=== PATIENT | female | born 1990 | race Hispanic/Latino ===

== ENCOUNTER → 2023-08-14 12:44 | Outpatient (CLI) | payer OTHER, SELFPAY ==
--- NOTE | ~2023-08-14 | US_ITS ---
EXAMINATION: US OB <=14 wk fetus w TV DATE: 08/14/2023 13:10 INDICATION: Amenorrhea TECHNIQUE: Real-time transabdominal and transvaginal obstetric ultrasound. FINDINGS: No prior studies for comparison. The uterus measures 10.4 x 6.1 x 5.9 cm. No intrauterine gestational sac, pole or yolk sac iden tified. Endometrium measures 4 mm. Right ovary contains 3.1 cm cyst. Left ovary unremarkable measurin g 2.5 x 2 x 1.7 cm. Small amount of free fluid in the pelvis. IMPRESSION: 1. No evidence for intrauterine . Differential diagnosis includes very early intrauterine pr egnancy, failed and ectopic . Recommend follow-up with serial quantitative beta-hC G levels and ultrasound as clinically warranted. 2: Right ovarian cyst measuring 3.1 cm. Reviewed, dictated and finalized at location B. [employer] IMPRESSION: 1. No evidence for intrauterine . Differential diagnosis includes very early intrauterine , failed and ectopic . Recommen d follow-up with serial quantitative beta-hCG levels and ultrasound as clinical ly warranted. 2: Right ovarian cyst measuring 3.1 cm.
== END ==
PROVIDERS: PCP Student in an Organized Health Care Education/Training Program; Visit Provider Student in an Organized Health Care Education/Training Program
DX: N91.2 Amenorrhea, unspecified (principal); N83.201 Unspecified ovarian cyst, right side
CPT/HCPCS: 76801; 76817

== ENCOUNTER 2024-02-20 09:15 | Outpatient (RCR) | payer OTHER, SELFPAY ==
[2024-02-06 09:40] VITALS: BMI 39.4
[2024-02-06 09:42] VITALS: BMI 39.4
== END 2024-04-27 11:16 | disposition home or self-care (01) ==
LOC: ANHDMC 09:15
PROVIDERS: PCP Student in an Organized Health Care Education/Training Program; Visit Provider Student in an Organized Health Care Education/Training Program
DX: O24.419 Gestational diabetes mellitus in pregnancy, unspecified control (principal); Z71.3 Dietary counseling and surveillance
CPT/HCPCS: 97802; G0108

== ENCOUNTER 2024-04-04 21:01 | Inpatient (IN) | payer OTHER, SELFPAY ==
[2024-04-04 21:46] VITALS: BP 119/82; PULSE 65
[2024-04-04 22:00] VITALS: TEMP 36.5
[2024-04-04 22:04] VITALS: BP 99/38
[2024-04-04 22:17] VITALS: BP 105/61; PULSE 71
[2024-04-04 22:31] VITALS: BP 106/61; PULSE 70
[2024-04-04 23:16] VITALS: BP 112/78; PULSE 69
[2024-04-04 23:52] LABS: Basophils Percent Auto 0.2 % (0.2-1.2); Eosinophils Absolute Auto 0.1 K/mm3 (0-0.3); Eosinophils Percent Auto 0.7 % (0-4.4); Hematocrit 37.3 % (37.0-47.0); Hemoglobin 12.5 g/dL (12.0-15.0); Immature Granulocyte Absolute 0.03 K/mm3 (0.00-0.031); Immature Granulocyte Percent A 0.3 % (0-0.5); Lymphocytes Absolute Auto 2.27 K/mm3 (0.9-3.2); Lymphocytes Percent Auto 22.7 % (18.3-44.2); Mean Corpuscular HGB Conc 33.5 g/dl (32-36); Mean Corpuscular Hemoglobin 28.4 pg (26-34); Mean Corpuscular Volume 84.8 fl (80-100); Mean Platelet Volume 11.1 fl (7.4-10.4); Monocytes Absolute Auto 0.6 K/mm3 (0.1-0.6); Monocytes Percent Auto 6.3 % (2.6-8.5); Neutrophils Percent Auto 69.8 % (45.5-73.1); Platelet Count Result 142 k/mm3 (150-375); Red Cell Distribution Width 18.6 % (11.5-14.5)
--- NOTE | 2024-04-04 23:56 | LDADM ---
This patient, Nilam Dang, was admitted to Labor/Delivery/Recovery 107 on 04/04/24 at 21:01. Plans for labor, pain management and were discussed with patient. Patient/family oriented to hospital policies and general routines including ID bracelet, bed and alarms, visiting hours, pain management, procedures, bathroom and other care routines, personal items, smoking policy, room service/diet and guest tray routines, security routines, and visiting hours. Patient/Family are encouraged to report perceived risks to care and to ask questions if they do not understand what they are told or what they should do. See OBIX for further documentation.
[2024-04-05] VITALS (181 sets, daily range): BP systolic 85–136; BP diastolic 40–91; PULSE 37–108; RESP 10–17; TEMP 36.5–37.5; O2SAT 96–100; BMI 39.2
[2024-04-05] MEDS: OXYTOCIN 30 UNITS/NS 500 ML 30 UNITS/500 ML BAG IV CONT
[2024-04-05 00:02] LABS: Glucose 96 mg/dL (65-110)
[2024-04-05 00:18] LABS: Rapid Plasma Reagin Non-Reactive (NonReactive)
[2024-04-05 00:42] LABS: HIV 1/2 Ab P24 Ag Result Negative (Negative)
[2024-04-05 04:27] LABS: Glucose Point of Care 87 mg/dl (65-105)
[2024-04-05] MEDS: LACTATED RINGERS 1,000 ML 125 ML IV CONT ×3 (06:31→09:19)
--- NOTE | 2024-04-05 06:55 | WPDANESEPP ---
Anes - Eval Pre Procedure Procedure: Operation Date: 04/09/24 12:00 Proposed Procedures p Repeat Section - John Franklin MD Date/Time: 04/05/24 06:55 Surgeon: Rigoberto Preop Diagnosis: Labor Pain Pre Op Diagnosis: SROM Patient Data Age: 33 Gender: F Height: 1.52 m Weight: 91 kg Last Vital Signs Temp 36.6 C 04/05/24 02:00 Pulse 91 04/05/24 06:55 BP 105/72 04/05/24 06:55 Pulse Ox 100 04/05/24 06:55 Allergies Allergy/AdvReac Type Severity Reaction Status Date / Time No Known Allergies Allergy Verified 04/02/24 10:39 Home Medications Medication Instructions Recorded Confirmed Type vits no.126-ferrous fum tablet PO 08/14/23 03/26/24 History 28 mg iron-folic acid 800 mcg tablet (Classic ) ferrous sulfate 325 mg (65 mg 325 mg PO DAILY 02/06/24 03/26/24 History iron) tablet omeprazole 40 mg capsule,delayed 40 mg PO DAILY #60 caps 03/18/24 03/26/24 Rx release Laboratory Tests 04/04/24 04/05/24 23:44 04:24 WBC 10.0 K/mm3 (4.5-10.0) RBC 4.40 M/mm3 (4.2-5.4) Hgb 12.5 g/dL (12.0-15.0) Hct 37.3 % (37.0-47.0) MCV 84.8 fl (80-100) MCH 28.4 pg (26-34) MCHC 33.5 g/dl (32-36) RDW 18.6 H % (11.5-14.5) Plt Count 142 L k/mm3 (150-375) MPV 11.1 H fl (7.4-10.4) Immature Gran % (Auto) 0.3 % (0-0.5) Neut % (Auto) 69.8 % (45.5-73.1) Lymph % (Auto) 22.7 % (18.3-44.2) [place] % (Auto) 6.3 % (2.6-8.5) Eos % (Auto) 0.7 % (0-4.4) Baso % (Auto) 0.2 % (0.2-1.2) Lymph # (Auto) 2.27 K/mm3 (0.9-3.2) [place] # (Auto) 0.6 K/mm3 (0.1-0.6) Eos # (Auto) 0.1 K/mm3 (0-0.3) Baso # (Auto) 0.0 K/mm3 (0.0-0.1) Abs Immat Gran (auto) 0.03 K/mm3 (0.00-0.031) Absolute Neuts (auto) 7.0 H K/mm3 (1.3-6.7) Absolute Nucleated RBC 0.000 K/mm3 (0.0-0.012) Nucleated RBC % 0.0 % (0.0-0.2) Glucose 96 mg/dL (65-110) POC Capillary Glucose 87 mg/dl (65-105) RPR Non-reactive (NonReactive) HIV 1&2 Ab/P24 Ag 4thGn Negative (Negative) Blood Type A Positive Antibody Screen Negative : gestational age (JESUS 04/16/24) Patient hx anesthesia problems: none Family hx anesthesia problems: none Results Review: All pre-operative results and documents have been reviewed as part of the pre-operative evaluation. [facility] Past Medical History Medical History Suppression of menses Surgical History Surgical History History of delivery Family History Family History Grandparent Diabetes mellitus Hypertension Mother Breast cancer in situ Social History Social History Smoking status: Never smoker Second hand tobacco smoke exposure: No Alcohol intake: current Alcohol use details: occasional Substance use: never Do You Feel Safe in your Home?: Yes Lack of Transportation: No Lack of Food: Never True Current Housing: I Have Housing Concerned About Future Housing: No Difficulty Paying Gas/Electric Bills: No Difficulty Paying for Meds: No Currently Unemployed: No Education: Master's Degree or Higher Difficulty w/ Childcare or Family Care: No Living arrangements: with family Occupation/Education: occupation Gender identity (if verbalized by the patient): Female Sexual Orientation (if Verbalized by the Patient): Straight or Heterosexual Spiritual care concerns: No Exam Day of Procedure 04/05/24 06:55 Patient weight: normal Heart: regular rate and rhythm Lungs: normal air movement Airway: Mallampati scale class II Neurological: alert and jeffery
--- NOTE | 2024-04-05 08:19 | PM.IMHP ---
H&P: HPI History of Present Illness Date/Time: 04/05/24 08:19 Chief Complaint: leakage of fluid intrauterine at term prior gestational diabetes Narrative: 33 yo at 38w2d who presents with spontaneous rupture of membranes. is complicated by diet controlled GDM, prior , and anemia. Review of Systems Cardiovascular: Cardiovascular: Denies chest pain, Denies leg edema, Denies palpitations, Denies dyspnea and Denies dyspnea on exertion Respiratory: Respiratory: Denies cough, Denies dyspnea and Denies dyspnea on exertion Gastrointestinal: Gastrointestinal: Denies abdominal pain, Denies constipation, Denies diarrhea, Denies nausea and Denies vomiting Genitourinary: Genitourinary: Denies hematuria, Denies urinary frequency, Denies dysuria, Denies pelvic pain, Denies urinary incontinence and Denies vaginal discharge Neurologic: Reports system reviewed and no additional complaints, except as documented Psychiatric: Psychiatric: Reports no additional psychiatric complaints Endocrine: Endocrine: Denies palpitations PMFSH Past Medical History Medical History Suppression of menses Surgical History Surgical History History of delivery Family History Family History Grandparent Diabetes mellitus Hypertension Mother Breast cancer in situ Social History Social History Smoking status: Never smoker Second hand tobacco smoke exposure: No Alcohol intake: current Alcohol use details: occasional Substance use: never Do You Feel Safe in your Home?: Yes Lack of Transportation: No Lack of Food: Never True Current Housing: I Have Housing Concerned About Future Housing: No Difficulty Paying Gas/Electric Bills: No Difficulty Paying for Meds: No Currently Unemployed: No Education: Master's Degree or Higher Difficulty w/ Childcare or Family Care: No Living arrangements: with family Occupation/Education: occupation Gender identity (if verbalized by the patient): Female Sexual Orientation (if Verbalized by the Patient): Straight or Heterosexual Spiritual care concerns: No Meds Home Medications and Allergies Home Medications Medication Instructions Recorded Confirmed Type vits no.126-ferrous fum tablet PO 08/14/23 03/26/24 History 28 mg iron-folic acid 800 mcg tablet (Classic ) ferrous sulfate 325 mg (65 mg 325 mg PO DAILY 02/06/24 03/26/24 History iron) tablet omeprazole 40 mg capsule,delayed 40 mg PO DAILY #60 caps 03/18/24 03/26/24 Rx release Allergies Allergy/AdvReac Type Severity Reaction Status Date / Time No Known Allergies Allergy Verified 04/02/24 10:39 Vital Signs Vital Signs - 24 hr 04/04/24 21:46 04/04/24 22:04 04/04/24 22:17 Temperature Pulse Rate 65 71 Blood Pressure 119/82 99/38 L 105/61 Pulse Oximetry 04/04/24 22:31 04/04/24 23:16 04/05/24 00:31 Temperature Pulse Rate 70 69 Blood Pressure 106/61 112/78 106/62 Pulse Oximetry 04/05/24 01:01 04/05/24 01:31 04/05/24 02:01 Temperature Pulse Rate 70 40 L 41 L Blood Pressure 95/48 L 111/55 L 114/55 L Pulse Oximetry 04/05/24 02:31 04/05/24 03:01 04/05/24 03:31 Temperature Pulse Rate 67 40 L 40 L Blood Pressure 114/57 L 102/59 L 119/57 L Pulse Oximetry 04/04/24 22:00 04/05/24 00:00 04/05/24 02:00 Temperature 97.7 F 97.7 F 97.8 F Pulse Rate Blood Pressure Pulse Oximetry 04/05/24 04:01 04/05/24 04:31 04/05/24 05:02 Temperature Pulse Rate 42 L 72 41 L Blood Pressure 124/72 128/87 99/83 L Pulse Oximetry 04/05/24 06:01 04/05/24 06:31 04/05/24 06:35 Temperature Pulse Rate 75 Blood Pressure 110/91 H 110/64 Pul
[2024-04-05 08:26] LABS: Glucose Point of Care 95 mg/dl (65-105)
--- NOTE | 2024-04-05 08:26 | PM.OBPNLAB ---
Pain Control Date/time seen: 04/05/24 08:26 Pain control: epidural Pelvic Exam Dilation (cm): 3 Effacement (%): 80 station: 0 Amniotic membrane status: Ruptured Contractions Monitor mode: External Contraction pattern: Regular Status status: Category l Assessment and Plan Plan: continuous present management Comments: IUPC placed. Discussed plan of care. discussed if indicated
[2024-04-05 11:59] LABS: Glucose Point of Care 80 mg/dl (65-105)
--- NOTE | 2024-04-05 12:56 | PM.OBPNLAB ---
Pain Control Date/time seen: 04/05/24 12:56 Pain control: tolerating well and epidural Comments: 33 yo who presented at 38w2d with SROM. Pt desired TOLAC. Pt has been on pitocin for over 12 hours without cervical change. Patient's last was due to failure to progress. Pelvic Exam Dilation (cm): 4 Effacement (%): 80 station: 0 Amniotic membrane status: Ruptured Contractions Monitor mode: Internal Contraction pattern: Regular Status status: Category l Assessment and Plan Plan: Comments: Cervix remained unchanged despite 12 hours of Pitocin. Patient's last labor was a due to failure to progress. Given last EFW in the 90th percentile and no cervical change, recommend repeat . Patient and her partner are agreeable to this plan. Risks, benefits of discussed at length. Will proceed with repeat
[2024-04-05] MEDS: ACETAMINOPHEN 500 MG TABLET 1000 MG PO (13:02)
[2024-04-05] MEDS: AZITHROMYCIN 500 MG/NS 250 ML 500 MG/250 ML BAG 250 MG IVPB (13:14)
[2024-04-05] MEDS: FAMOTIDINE 20 MG/2 ML VIAL IV PUSH (13:26)
[2024-04-05] MEDS: ONDANSETRON INJ 4 MG/2 ML VIAL IV PUSH ×2 (13:26→20:21)
[2024-04-05] MEDS: ceFAZolin 2 GM/D5W 50 ML 2 GM/50 ML BAG IVPB (14:00)
--- NOTE | 2024-04-05 15:09 | W.PM.OBCSD ---
OB - Delivery Note Procedure Delivery date: 04/05/24 Pre-op diagnosis: Arrest of Decent, Arrest of Dilation, Gestational Diabetes and Previous Delivery Post-op Diagnosis: Same Induction method: None Delivery augmentation: Pitocin Delivery monitor: External FHT and Internal Uterine Prior to decision for section, ACOG/SM labor guidelines were considered and discussed with the patient and staff. Decision made to proceed with the section.: Yes Procedure Performed: Repeat Secondary branch: low cervical, transverse Surgeon: John Franklin MD Anesthesia type: Epidural Description of Procedure/Findings: The patient was taken to the operating room. A combined spinal epidural anesthesic was administered and found to be adequate at a t-10 level. The patient was placed in a supine position with a slight left lateral tilt. A rosas catheter was placed with return of clear urine. A Bovie grounding pad was placed. Surgical prep was performed and surgical drapes were placed. A surgical time out was performed. A Pfannenstiel skin incision was then made with the scalpel and carried through to the underlying layer of fascia. The fascia was then incised in the midline and the incision was extended laterally with the Austin scissors. The superior aspect of the fascia was then grasped with the Sukumar clamps, elevated, and the underlying rectus muscles dissected off bluntly and sharply. Attention was then turned to the inferior aspect of this incision which, in a similar fashion, was grasped, tented up with the Sukumar clamps, and the rectus muscles dissected off both bluntly and sharply. The rectus muscles were then in the midline. The peritoneum was identified and entered bluntly. The peritoneal incision was then extended superiorly and inferiorly with good visualization of the bladder. The vesico-uterine serosa was identified and dissected to create a bladder flap. A ring retractor was placed for better visualization. The uterus was inspected for rotation. A low-transverse uterine incision was made sharply with the scalpel and entry was made into the uterine cavity. An amniotomy was made and copious amounts of clear fluid were noted on return. The uterine incision was extended laterally bluntly. The bladder blade was removed and the fetus was delivered atraumatically. The nose and mouth were suctioned with a bulb syringe. The umbilical cord was clamped twice and cut. The infant was handed off to the waiting staff. At the time of the delivery, the had good color, tone and grimace. The infant cried with minimal stimulation. A second segment of umbilical cord was clamped and cut for cord blood gasses. Cord blood was collected for determination of the blood type and for direct Akbar. The placenta was delivered spontaneously without difficulty. The placenta appeared grossly normal and complete. The uterus was exteriorized and cleared of all clots and debris. A hysterotomy extension was noted at the right apex extending toward the cervix. The apex of the extension was identified. The extension was then re-approximated with 0-monocryl in a running fashion. Once normal anatomy was re-established, the uterine incision was repaired using 0-monocryl suture in a running fashion. A second layer of 0 Monocryl suture was used in an imbricating fashion to obtain excellent hemostasis and uterine strength. The uterine closure was inspected for hemostasis. The posterior aspect of the uterus and the broad ligaments were inspected and the posterior cul-de-sac cleared of fluid and blood clots. The uterine closure was again inspected and found to be hemostatic. Hemaderm powder was used to ensure excellent hemostasis. The uterus was returned to the abdominal cavity. The ring retractor was removed from the abdomen. The pericolic gutters were inspected and were cleared of all blood clots and debris. The uterine closure was then re inspec
--- NOTE | 2024-04-05 15:20 | PC.NURSE ---
Dr. Bauer and Rylie Bowles LINESPERSON and Dr. Franklin at the bedside. Reviewing maternal heart rate and rhythm. Dr. Franklin and Dr. Bauer okay with just monitoring the pt at this time. The pt remain asymptomatic at this time. Order received for H&H and BMP to be orders in [address] Franklin with those labs results.
[2024-04-05] MEDS: OXYTOCIN 30 UNITS/NS 500 ML 30 UNITS/500 ML BAG 125 UNITS IV CONT (16:06)
[2024-04-05] MEDS: LACTATED RINGERS 250 ML 999 ML IVPB (16:07)
[2024-04-05 16:23] LABS: Hematocrit 33.5 % (37.0-47.0); Hemoglobin 11.1 g/dL (12.0-15.0)
[2024-04-05 16:37] LABS: Anion Gap 9 mmol/L (4-12); Blood Urea Nitrogen 7 mg/dL (7-17); Calcium 8.2 mg/dL (8.4-10.2); Carbon Dioxide 21 mmol/L (22-30); Chloride 104 mmol/L (98-107); Estimated CRCL calculation 160 ml/min; Estimated Glomerular Filt Rate > 60; Glucose 82 mg/dL (65-110); Potassium 3.9 mmol/L (3.4-5.0); Sodium 134 mmol/L (137-145)
--- NOTE | 2024-04-05 16:56 | PC.NURSE ---
Dr. Franklin updated on pt VS, lab results and urine clearing up. No further orders at this time.
--- NOTE | 2024-04-05 18:52 | OBPPTRN ---
0215 Patient transferred to post room #285 via stretcher. Support person present. Oriented to unit, room, information board, rooming in, admission packet and security measures. Patient verbalizes understanding.
[2024-04-05] MEDS: SIMETHICONE 80 MG TAB.CHEW PO (20:21)
[2024-04-05] MEDS: ACETAMINOPHEN 325 MG TABLET 650 MG PO (20:21)
[2024-04-05] MEDS: KETOROLAC 15 MG/ML VIAL (*BKC) IV PUSH (20:22)
[2024-04-05] MEDS: KCL 20 MEQ/D5/0.45% SOD CHL 1,000 ML 125 ML IV CONT (20:23)
[2024-04-05] MEDS: PROMETHAZINE HCL 25 MG/ML AMPUL 12.5 MG IV PUSH (22:59)
[2024-04-06 00:26] VITALS: BP 106/71; PULSE 66; RESP 14; TEMP 36.8; O2SAT 97
[2024-04-06] MEDS: ACETAMINOPHEN 325 MG TABLET 650 MG PO ×4 (05:10→22:38)
[2024-04-06] MEDS: KETOROLAC 15 MG/ML VIAL (*BKC) IV PUSH ×3 (05:10→16:35)
[2024-04-06] MEDS: ONDANSETRON INJ 4 MG/2 ML VIAL IV PUSH (05:10)
[2024-04-06 06:07] LABS: Basophils Percent Auto 0.3 % (0.2-1.2); Eosinophils Absolute Auto 0.1 K/mm3 (0-0.3); Eosinophils Percent Auto 0.4 % (0-4.4); Hematocrit 30.4 % (37.0-47.0); Immature Granulocyte Absolute 0.05 K/mm3 (0.00-0.031); Immature Granulocyte Percent A 0.4 % (0-0.5); Lymphocytes Absolute Auto 1.68 K/mm3 (0.9-3.2); Lymphocytes Percent Auto 14.6 % (18.3-44.2); Mean Corpuscular HGB Conc 32.9 g/dl (32-36); Mean Corpuscular Hemoglobin 29.2 pg (26-34); Mean Corpuscular Volume 88.6 fl (80-100); Mean Platelet Volume 10.9 fl (7.4-10.4); Monocytes Absolute Auto 0.8 K/mm3 (0.1-0.6); Monocytes Percent Auto 6.5 % (2.6-8.5); Neutrophils Absolute Auto 8.9 K/mm3 (1.3-6.7); Neutrophils Percent Auto 77.8 % (45.5-73.1); Platelet Count Result 121 k/mm3 (150-375); Red Blood Count 3.43 M/mm3 (4.2-5.4); Red Cell Distribution Width 18.9 % (11.5-14.5); White Blood Count 11.5 K/mm3 (4.5-10.0)
[2024-04-06 07:25] VITALS: BP 97/71; PULSE 78; RESP 16; TEMP 36.6; O2SAT 98
[2024-04-06] MEDS: MULTIVIT/MIN/PREN/FOL AC/IRON TABLET 1 TAB PO (07:50)
[2024-04-06] MEDS: DOCUSATE SODIUM 100 MG CAPSULE PO ×2 (08:00→16:35)
[2024-04-06] MEDS: SIMETHICONE 80 MG TAB.CHEW PO ×3 (08:00→16:36)
[2024-04-06] MEDS: LIDOCAINE 5% PATCH 1 PATCH TRANSDERM (08:01)
--- NOTE | 2024-04-06 09:01 | WPDANLDNPN2 ---
Anes-Prog Note L&D-Neuraxial Date/Time: 04/06/24 09:01 Patient feedback: Patient satisfied with post-operative pain management.
--- NOTE | 2024-04-06 09:01 | WPDANLDPN2 ---
Anes-Prog Note L&D Date/Time: 04/06/24 09:01 Neuro status: Neuro function grossly intact. Cardiovascular status: normal Respiratory status: normal Airway patency: baseline Mental status: baseline Post-Op hydration status: normal Vital Signs: Last Vital Signs Temp 36.8 C 04/06/24 00:26 Pulse 66 04/06/24 00:26 Resp 14 04/06/24 00:26 BP 106/71 04/06/24 00:26 Pulse Ox 97 04/06/24 00:26 O2 Del Method Room Air 04/06/24 00:26 Pain score (VAS): 0 I/O: Intake & Output 04/05/24 04/06/24 04/06/24 23:59 07:59 15:59 Intake Total 1000 Output Total 970 825 Balance -970 175 Post-procedural complaints: none Patient feedback: Patient satisfied with anesthetic care.
--- NOTE | 2024-04-06 09:22 | PM.OBPNVD ---
OB - PN: Subj Subjective Date/time seen: 04/06/24 09:22 Patient comments: no complaints, pain well controlled, tolerating diet and flatus present OB - PN: Obj Data Labs 04/06/24 05:43 04/05/24 16:12 Labs: Laboratory Results - last 24 hr 04/05/24 04/05/24 04/06/24 11:54 16:12 05:43 WBC 11.5 H RBC 3.43 L Hgb 11.1 L 10.0 L Hct 33.5 L 30.4 L MCV 88.6 MCH 29.2 MCHC 32.9 RDW 18.9 H Plt Count 121 L MPV 10.9 H Immature Gran % (Auto) 0.4 Neut % (Auto) 77.8 H Lymph % (Auto) 14.6 L [place] % (Auto) 6.5 Eos % (Auto) 0.4 Baso % (Auto) 0.3 Lymph # (Auto) 1.68 [place] # (Auto) 0.8 H Eos # (Auto) 0.1 Baso # (Auto) 0.0 Abs Immat Gran (auto) 0.05 H Absolute Neuts (auto) 8.9 H Absolute Nucleated RBC 0.000 Nucleated RBC % 0.0 Sodium 134 L Potassium 3.9 Chloride 104 Carbon Dioxide 21 L Anion Gap 9 BUN 7 Creatinine 0.40 L Estim Creat Clear Calc 160 Estimated GFR > 60 Glucose 82 POC Capillary Glucose 80 Calcium 8.2 L OB - PN A/P Plan day: 1 Plan: routine care Comments: patient doing well H/H stable afebrile, VSS incision C/D/I rosas removed, voiding spontaneously continue routine post op care Time Spent With Patient Time: Total time spent is greater than 50% in coordination of care (as documented) at patient's floor/unit and/or counseling patient: Time with patient: less than 15 minutes Review of Systems Constitutional: Constitutional: Reports no additional constitutional complaints Cardiovascular: Cardiovascular: Reports no additional cardiovascular complaints Respiratory: Respiratory: Reports no additional respiratory complaints Gastrointestinal: Gastrointestinal: Reports no additional gastrointestinal complaints Genitourinary: Genitourinary: Reports no additional female genitourinary complaints Exam Const: General: comfortable and no acute distress Resp: Effort & Inspection: normal respiratory effort Auscultation: clear to auscultation bilaterally Cardio: Rate: regular rate GI: GI Palp: Yes Soft to palpation, Yes Tenderness to palpation present (GI) (around incision ) and No Guarding due to palpation present (GI) Auscultation: normal bowel sounds Other: incision C/D/I, covered with Dermabond Psych: Appearance: grossly normal Mental Status: mental status grossly normal Affect: normal affect
--- NOTE | 2024-04-06 10:14 | PC.NURSE ---
0945. Introductions were made, then consulted with patient to assess needs related to . Mother led the conversation with her?plans to feed?her infant and the?experience so far. Encouraged understanding of the benefits of skin to skin (demonstrating unwrapping infant and placing upright on her chest), stimulating with massage touch, changing positions to encourage wakefulness, how to watch for early feeding cues, responsive feeding, feeding on demand (aiming for 8-12 times in 24 hours, about every 2-3 hours), milk production, building/maintaining a milk supply, duration of feeding, signs of adequate intake/output and how to record on the feeding sheet. Mother verbalizes she is able to independently latch with appropriate positioning and alignment. She denies any nipple discomfort and is responsively . is currently meeting outcomes for weight, output, jaundice, blood sugar and feeding frequencies of 8-12 times in 24 hours. Mother declines any additional assistance or education at this time. Mother is encouraged to call for assistance if her infant doesn?t latch, pain with latching, questions or concerns. Mother voiced understanding of information shared along with the mom/baby guide for an additional resource. Reported to the Primary RN.
[2024-04-06 12:17] VITALS: BP 98/66; PULSE 78; RESP 16; TEMP 36.6; O2SAT 99
--- NOTE | 2024-04-06 14:26 | PC.NURSE ---
1330. Pt called to have nurse check her latch. Mom had latched on R breast in cross cradle position wrapped in blankets. Mom encouraged to unwrap infant to help stay awake during feed. Mom explained infant has been pretty sleepy during feeds, education given on what to expect for feedings in the first 24 hrs of life versus after 24 hrs. Mom encouraged to have infant latched and nursing for at least 10 min (or longer) every 3 hours. Encouraged understanding of the benefits of skin to skin (demonstrating unwrapping infant and placing upright on her chest), stimulating with massage touch, changing positions to encourage wakefulness, how to watch for early feeding cues, responsive feeding, feeding on demand (aiming for 8-12 times in 24 hours, about every 2-3 hours), milk production, building/maintaining a milk supply, duration of feeding, signs of adequate intake/output and how to record on the feeding sheet. Mother works well with her with encouragement and education. Reviewed positioning and ear, shoulder, hip alignment, supporting the breast to facilitate a deep latch, asymmetrical latch (off-center), leading with the chin with a big, open, wide gape and body close to mother. Education given to the mother of how to visualize the suckling (with good rocking jaw motion), swallows (dropping of the lower jaw) and how to listen for drinking at the breast (the ka sound). Reported to the Primary RN.
[2024-04-06] MEDS: TETANUS,DIPHTHERIA,AC PERTUSSIS ADULT (0.5 ML) BOOSTRIX IM (16:32)
[2024-04-06 21:00] VITALS: BP 108/70; PULSE 75; RESP 16; TEMP 36.4; O2SAT 100
[2024-04-06] MEDS: IBUPROFEN 600 MG TABLET PO (22:38)
[2024-04-07] MEDS: IBUPROFEN 600 MG TABLET PO ×2 (06:52→12:36)
[2024-04-07] MEDS: HYDROcodone/acetaminophen (*CRX) 5-325 MG TABLET 1 TAB PO (06:52)
--- NOTE | 2024-04-07 07:16 | PM.OBDSVD ---
DS: Admitting Diagnosis Discharge Date 04/07/24 Admitting Diagnosis intrauterine at term prior x1 GDM DS: Discharge Diagnosis Discharge Diagnosis (1) Delivery by section of full-term : Code(s): O82 - Encounter for delivery without indication Status: Acute OB - DS: Summary Hospital Course Hospital Course: 33-year-old who presents at 38 weeks 2 days spontaneous rupture of membranes. Patient's complicated by history of x1 for failure to progress and diet-controlled gestational diabetes. Patient desired trial of labor after . Given spontaneous rupture of membranes, patient's labor was augmented with Pitocin to give patient attempt at labor. Patient's cervix stalled at 4 cm after 12 hours of Pitocin. Decision was made to proceed with repeat . course was uncomplicated. OB Procedures : None OB Procedures Intrapartum: low cervical, transverse OB Procedures: : None Peripartum Data Infant Delivery Method: Section Procedures: Procedures Operation Date: 04/05/24 13:45 Actual Procedure Side Surgeon p Section John Franklin MD Operation Date: 04/09/24 12:00 <No data on this case meets the specified criteria> complications: none Status at Discharge Functional status at discharge: independent ambulation Overall status at discharge: patient is progressing back to baseline Time Spent with Patient Time attestation: Total time spent providing and/or coordinating discharge services: Time spent: Less than 30 minutes Exam Const: General: comfortable and no acute distress Resp: Effort & Inspection: normal respiratory effort Auscultation: clear to auscultation bilaterally Cardio: Rate: regular rate GI: Inspection: non-distended GI Palp: Yes Soft to palpation, No Firmness to palpation present (GI), Yes Tenderness to palpation present (GI) (mild tenderness over incision ) and No Guarding due to palpation present (GI) Auscultation: normal bowel sounds Psych: Appearance: grossly normal Mental Status: mental status grossly normal Discharge Plan Discharge Discharging Clinician: John Franklin Patient Disposition: Home, Self-Care Activity: as tolerated and pelvic rest Diet: regular Patient Instructions: Antibiotic Form, (DC) Stand Alone Forms: General Discharge Information Follow-up/Referrals: John Franklin MD [Physician] - 1 Week (PICCO dressing removal) Discharge Medications: New oxycodone-acetaminophen 5-325 mg tablet 1 tablet PO Q6H PRN (Reason: pain) Qty: 28 0RF ibuprofen 600 mg tablet 600 mg PO Q6H PRN (Reason: pain) Qty: 30 0RF Continued Classic 28 mg iron- 800 mcg tablet PO ferrous sulfate 325 mg (65 mg iron) tablet 325 mg PO DAILY omeprazole 40 mg capsule,delayed release(DR/EC) 40 mg PO DAILY Qty: 60 0RF Date of admission: 04/04/24 21:01 Primary Care Provider: UNKNOWN,DOCTOR Admitting Provider: John Franklin Attending physician on admission: John Franklin Condition: Stable
[2024-04-07 08:10] VITALS: BP 113/67; PULSE 72; RESP 16; TEMP 36.6; O2SAT 99
[2024-04-07] MEDS: SIMETHICONE 80 MG TAB.CHEW PO ×2 (09:00→12:35)
[2024-04-07] MEDS: DOCUSATE SODIUM 100 MG CAPSULE PO (09:00)
[2024-04-07] MEDS: MULTIVIT/MIN/PREN/FOL AC/IRON TABLET 1 TAB PO (09:00)
--- NOTE | 2024-04-07 10:01 | PC.NURSE ---
Patient viewed the discharge video Mother & Baby Care, The First Two Weeks . Patient was given the opportunity and encouraged to ask questions. Patient verbalized understanding of information shared and has been given the mother/baby guide for home reference.
--- NOTE | 2024-04-07 11:00 | PC.NURSE ---
Mother verbalizes she is able to independently latch with appropriate positioning and alignment. She denies any nipple discomfort and is responsively . Infant is currently meeting outcomes for weight, output, jaundice, blood sugar and feeding frequencies of 8-12 times in 24 hours. Mother declines any additional assistance or education at this time. Observed mom latch baby in cradle on the right breast. She expressed concern that baby wasn't comfortable, so we repositioned and discussed starting with a cross cradle hold to latch and then switching to cradle if it's more comfortable. Infant was vigorous and swallowing frequently, every 2-3 sucks. The elastic attacher chainstitch ordered a weight check this afternoon so we discussed signs that infant isn't getting everything she needs at the breast, mom's history of low milk production, and reasons to initiate pumping for additional stimulation. Mom has no history of endocrine or fertility issues that might signify low milk production. Mother is encouraged to call for assistance if her infant doesn?t latch, pain with latching, questions or concerns. Mother voiced understanding of information shared along with the mom/baby guide for an additional resource. Reported to the Primary RN.
[2024-04-07] MEDS: ACETAMINOPHEN 325 MG TABLET 650 MG PO (12:35)
--- NOTE | 2024-04-07 12:45 | PC.NURSE ---
Consulted with mother concerning needs and she shared her ability to independently latch infant optimally without pain. Mother is feeding appropriately for growth of and understands stimulating to eat if needed. Infant has had appropriate feedings in the last 24 hours meets the outcomes for weight, output, blood sugar and jaundice at this time. Reinforced understanding of milk production, transition of milk, signs of adequate intake, transition of stool, prevention/relief of engorgement, pacifier use, responsive watching for feeding cues, the different methods of stimulating infant to breastfeed 1-3 hours after the start of the last feeding, community resources, and when to call a provider using the resource of the feeding sheet along with the mom and baby guide. Mother has a pump for home use if needed. Mother voiced understanding of the information shared, is confident to continue effectively her at home, when to call for assistance, denies any additional assistance or education at this time. Reported to the Primary RN.
[2024-04-08 10:42] VITALS: BP 127/79; PULSE 78; RESP 18; TEMP 37.1; O2SAT 100
== END 2024-04-07 14:11 | disposition home or self-care (01) | DRG 787 ==
LOC: ANHLDR 22:38 → ANHOB2 04-05 17:31
PROVIDERS: Admitting Provider Student in an Organized Health Care Education/Training Program; Visit Provider Student in an Organized Health Care Education/Training Program
PROC: 10D00Z1 Extraction of Products of Conception, Low, Open Approach (ICD-10-PCS; CPT 59514; principal; 2024-04-05 13:45)
DX: O34.219 Maternal care for unspecified type scar from previous cesarean delivery (principal); O99.12 Other diseases of the blood and blood-forming organs and certain disorders involving the immune mechanism complicating childbirth; O62.1 Secondary uterine inertia; O24.420 Gestational diabetes mellitus in childbirth, diet controlled; O62.0 Primary inadequate contractions; O99.02 Anemia complicating childbirth; D64.9 Anemia, unspecified; D69.6 Thrombocytopenia, unspecified; Z3A.38 38 weeks gestation of pregnancy; Z37.0 Single live birth
CPT/HCPCS: 36415; 80048; 82947; 82948; 85014; 85018; 85025; 86592; 86703; 86850; 86900; 86901; 90715; A9270; G0432; J0456; J0690; J1885; J2274; J2405; J2550; J2590; J2795; J3480; J7120

== ENCOUNTER 2024-04-10 12:33 | Emergency (ER) | payer OTHER, SELFPAY ==
--- NOTE | ~2024-04-10 | CT_ITS ---
EXAMINATION: CTA chest abdomen pelvis DATE: 04/10/2024 13:39 INDICATION: Left chest pain. Low abdominal pain. TECHNIQUE: Computed tomographic angiography (CTA) of the chest, abdomen, and pelvis was performed wit h 100 mL Omnipaque-350 intravenous contrast. Automated exposure control and iterative reconstruction technique were employed. The dose-length product was 1071.83 mGy-cm. Maximum intensity projection 3D- reconstructions of the aorta and other arteries were constructed by the technologist on a separate wo rkstation. COMPARISON: None. 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 The lungs demonstrate minimal atelectasis. No pleural effusio n. Cardiomegaly is noted. No pericardial effusion. Thoracic aorta is normal. There is no pulmonary em bolus. ABDOMEN AND PELVIS CTA: The liver and spleen are normal. The gallbladder is normal in size. Gallbladder wall thickening is no kevin, likely secondary to interstitial edema. The pancreas, adrenal glands, and kidneys are normal. Th ere are no dilated loops of bowel. The appendix is normal. The uterus is enlarged, consistent with re cent . There are no pathologically enlarged lymph nodes. There is no free intraperitoneal fl uid. There are small hematomas in the body wall and extraperitoneal space of Retzius in the area of t he recent section. Abdominal aorta is normal in caliber. There is no significant stenosis of celiac axis, superior mesenteric artery, the renal arteries, or inferior mesenteric artery. There is moderate spondylosis at L5-S1. IMPRESSION: 1. Normal aorta. 2. No pulmonary embolus. 3. Small hematomas in the area of the recent section. Reviewed, dictated and finalized at location A.
--- NOTE | ~2024-04-10 | US_ITS ---
EXAMINATION: US venous doppler [facility] DATE: 04/10/2024 15:07 INDICATION: Lower limb pain and swelling TECHNIQUE: Grayscale ultrasound images without and with compression and Doppler ultrasound images of the bilateral lower extremity veins were obtained. COMPARISON: None. FINDINGS: The visualized portions of right common femoral vein, profunda (deep) femoral vein, femoral vein, pop liteal vein, posterior tibial veins, peroneal veins and greater saphenous vein outflow are patent. The visualized portions of left common femoral vein, profunda femoral vein, femoral vein, popliteal v ein, posterior tibial veins, peroneal veins and greater saphenous vein outflow are patent. IMPRESSION: 1. No deep venous thrombosis in either lower limb. Reviewed, dictated and finalized at location A.
[2024-04-10 12:37] VITALS: BP 135/88; PULSE 63; RESP 14; TEMP 36.4; O2SAT 98
--- NOTE | 2024-04-10 13:00 | ECG_ITS ---
Test Date: 2024-04-10 13:09:56 Measurements Intervals Hayes Rate: 51 P: 6 WY: 165 QRS: 21 QRSD: 86 T: 19 QT: 409 QTc: 378 Interpretive Statements SINUS BRADYCARDIA OTHERWISE NORMAL ELECTROCARDIOGRAM No previous ECG available for comparison Electronically Signed On 04-10-2024 18:18:53 CDT by Anthony Khan M.D.
--- NOTE | 2024-04-10 13:01 | ED.GENADULT ---
HPI - General Adult General Chief complaint: Back Pain/Injury Stated complaint: low back pain, radiating History of Present Illness HPI narrative: This is a 33-year-old female 3 days status post . She is complaining of intermittent shocking pains that start in her groin and then radiate to back chest and arms and legs. This lasted for approximately 1 hour where she feels like she cannot move. It then resolved spontaneously. This occurred once yesterday and then occurred again today. She called an ambulance and has brought to the hospital. Patient notes that she has a shocking pain underneath her left breast. She denies shortness of breath. She states that her right leg is more swollen than her left. No history of blood clots. She denies fevers chills abdominal pain, foul-smelling lochia or urinary symptoms. Related Data Home Medications Medication Instructions Recorded Confirmed vits no.126-ferrous fum tablet PO 08/14/23 03/26/24 28 mg iron-folic acid 800 mcg tablet (Classic ) ferrous sulfate 325 mg (65 mg 325 mg PO DAILY 02/06/24 03/26/24 iron) tablet Allergies Allergy/AdvReac Type Severity Reaction Status Date / Time No Known Allergies Allergy Verified 04/02/24 10:39 [facility] Past Medical History Medical History Suppression of menses Surgical History Surgical History History of delivery Family History Family History Grandparent Diabetes mellitus Hypertension Mother Breast cancer in situ Social History Social History Smoking status: Never smoker Second hand tobacco smoke exposure: No Alcohol intake: current Alcohol use details: occasional Substance use: never Do You Feel Safe in your Home?: Yes Lack of Transportation: No Lack of Food: Never True Current Housing: I Have Housing Concerned About Future Housing: No Difficulty Paying Gas/Electric Bills: No Difficulty Paying for Meds: No Currently Unemployed: No Education: Master's Degree or Higher Difficulty w/ Childcare or Family Care: No Living arrangements: with family Occupation/Education: occupation Gender identity (if verbalized by the patient): Female Sexual Orientation (if Verbalized by the Patient): Straight or Heterosexual Spiritual care concerns: No Exam Narrative: APPEARANCE: No apparent distress. Head: atraumatic. EYES: EOMI, NOSE: Atraumatic NECK: Trachea midline, supple, no meningismus RESPIRATORY: No increased rate of breathing clear to auscultation CARDIOVASCULAR: RRR, nonpitting edema of the lower extremities right greater than left ABDOMINAL: Soft, nontender, clean dry intact bandage with wound pump in the lower abdomen. MUSCULOSKELETAl: No obvious deformities NEURO: Alert. Cranial nerves 2-12 grossly intact. Sensation light touch, motor function cerebellar function intact for 4 extremities. Gait exam was normal. SKIN:: Warm, dry. Normal color PSYCHIATRIC: Normal affect Course Vital Signs Vital signs: Vital Signs Temperature 97.6 F 04/10/24 12:37 Pulse Rate 63 04/10/24 12:37 Respiratory Rate 14 04/10/24 12:37 Blood Pressure 135/88 04/10/24 12:37 Pulse Oximetry 98 04/10/24 12:37 Oxygen Delivery Room Air 04/10/24 12:37 Temperature 97.8 F 04/10/24 15:14 Pulse Rate 53 L 04/10/24 15:14 Respiratory Rate 18 04/10/24 15:14 Blood Pressure 135/88 04/10/24 12:37 Pulse Oximetry 100 04/10/24 15:14 Oxygen Delivery Room Air 04/10/24 12:37 Medical Decision Making MDM Narrative Medical decision making narrative: -Course: 33-year-old female presenting with essentially total body pain 3 days after having a . She specifically noted left-sided chest pain and swelling
[2024-04-10] MEDS: SODIUM CHLORIDE 0.9% IV 1,000 ML 999 ML IV CONT (13:24)
[2024-04-10 13:30] LABS: Basophils Percent Auto 0.5 % (0.2-1.2); Eosinophils Absolute Auto 0.1 K/mm3 (0-0.3); Eosinophils Percent Auto 1.5 % (0-4.4); Hematocrit 29.9 % (37.0-47.0); Hemoglobin 9.7 g/dL (12.0-15.0); Immature Granulocyte Absolute 0.08 K/mm3 (0.00-0.031); Immature Granulocyte Percent A 1.3 % (0-0.5); Lymphocytes Absolute Auto 1.16 K/mm3 (0.9-3.2); Lymphocytes Percent Auto 19.2 % (18.3-44.2); Mean Corpuscular HGB Conc 32.4 g/dl (32-36); Mean Corpuscular Volume 89.3 fl (80-100); Mean Platelet Volume 10.2 fl (7.4-10.4); Monocytes Absolute Auto 0.3 K/mm3 (0.1-0.6); Monocytes Percent Auto 4.8 % (2.6-8.5); Neutrophils Absolute Auto 4.4 K/mm3 (1.3-6.7); Neutrophils Percent Auto 72.7 % (45.5-73.1); Platelet Count Result 190 k/mm3 (150-375); Red Blood Count 3.35 M/mm3 (4.2-5.4); Red Cell Distribution Width 18.2 % (11.5-14.5); White Blood Count 6.1 K/mm3 (4.5-10.0)
[2024-04-10 13:41] LABS: Estimated CRCL calculation 110 ml/min; Estimated Glomerular Filt Rate > 60
[2024-04-10 13:42] LABS: INR 1.1
[2024-04-10 13:43] LABS: Partial Thromboplastin Time 35.2 Seconds (22.3-36.8)
[2024-04-10 13:44] LABS: Alanine Aminotransferase 15 U/L (6-35); Albumin Level 3.1 g/dL (3.5-5.1); Alkaline Phosphatase 87 U/L (38-126); Anion Gap 4 mmol/L (4-12); Aspartate Amino Transferase 22 U/L (14-36); Bilirubin,Total 0.4 mg/dL (0.2-1.3); Blood Urea Nitrogen 8 mg/dL (7-17); Calcium 8.4 mg/dL (8.4-10.2); Carbon Dioxide 25 mmol/L (22-30); Chloride 110 mmol/L (98-107); Estimated CRCL calculation 130 ml/min; Estimated Glomerular Filt Rate > 60; Glucose 99 mg/dL (65-110); Lipase 26 U/L (23-300); Magnesium 1.9 mg/dL (1.6-2.3); Potassium 3.8 mmol/L (3.4-5.0); Sodium 139 mmol/L (137-145)
[2024-04-10 13:55] LABS: NT Pro B Type Natriuretic Pept 414 pg/mL (19.9-100); Troponin I < 0.012 ng/mL (0.000-0.034)
[2024-04-10 14:08] LABS: Influenza A QL RT-PCR Negative (Negative); Influenza B QL RT-PCR Negative (Negative); RSV RNA, RT-PCR Negative (Negative); SARS-CoV-2 RNA PCR Negative (Negative)
[2024-04-10 15:14] VITALS: PULSE 53; RESP 18; TEMP 36.6; O2SAT 100
[2024-04-10 16:02] VITALS: BP 113/73; PULSE 60; RESP 18; TEMP 36.6; O2SAT 100
== END 2024-04-10 16:03 | disposition home or self-care (01) ==
PROVIDERS: Emergency Provider Emergency Medicine
DX: O99.893 Other specified diseases and conditions complicating puerperium (principal); R20.2 Paresthesia of skin; Z20.822 Contact with and (suspected) exposure to COVID-19; R00.1 Bradycardia, unspecified
CPT/HCPCS: 36415; 71275; 74174; 80053; 83605; 83690; 83735; 83880; 84484; 85025; 85610; 85730; 87637; 93005; 93970; 96360; 96361; 99284; J7030; Q9967

== ENCOUNTER 2024-10-12 16:58 | Emergency (ER) | payer OTHER, SELFPAY ==
[2024-10-12 17:11] VITALS: BP 119/84; PULSE 88; RESP 16; TEMP 36.7; O2SAT 99
--- NOTE | 2024-10-12 17:37 | ED.URI ---
HPI - URI/Sore Throat General Chief Complaint: Upper Respiratory Infection Stated Complaint: chills,throat pain Time Seen by Provider: 10/12/24 17:37 Source: patient, RN notes reviewed and old records reviewed Mode of arrival: ambulatory Limitations: no limitations History of Present Illness HPI Narrative: Patient presents with complaints of URI symptoms. She reports that she has had some chills and throat pain. 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 Her biggest concern today is strep throat. She has not taken any medication for her symptoms. She does not appear to be in any distress. She is able to manage own secretions, no drooling or stridor noted. Related Data Allergies Allergy/AdvReac Type Severity Reaction Status Date / Time No Known Allergies Allergy Verified 10/12/24 17:11 Review of Systems Review of Systems: All systems reviewed & are unremarkable except as noted in HPI and below Constitutional: Constitutional: Reports no additional constitutional complaints and Reports chills ENT: Reports system reviewed and no additional complaints, except as documented and Reports sore throat Cardiovascular: Cardiovascular: Reports no additional cardiovascular complaints Respiratory: Respiratory: Reports no additional respiratory complaints Gastrointestinal: Gastrointestinal: Reports no additional gastrointestinal complaints [facility] Past Medical History Medical History Suppression of menses Surgical History Surgical History History of delivery Family History Family History Grandparent Diabetes mellitus Hypertension Mother Breast cancer in situ Social History Social History Smoking status: Never smoker Second hand tobacco smoke exposure: No Alcohol intake: current Alcohol use details: occasional Substance use: never Do You Feel Safe in your Home?: Yes Lack of Transportation: No Lack of Food: Never True Current Housing: I Have Housing Concerned About Future Housing: No Difficulty Paying Gas/Electric Bills: No Difficulty Paying for Meds: No Currently Unemployed: No Education: Master's Degree or Higher Difficulty w/ Childcare or Family Care: No Living arrangements: with family Occupation/Education: occupation Gender identity (if verbalized by the patient): Female Sexual Orientation (if Verbalized by the Patient): Straight or Heterosexual Spiritual care concerns: No Comments At the time of my signature, I reviewed and agree with the nursing past medical, surgical, social, and family history. There is no relevant family history pertinent to the patient complaint. Exam Const: General: cooperative, no acute distress, alert and awake Orientation/consciousness: oriented to person, oriented to place and oriented to time HENMT: Head: normal to inspection Ears: TM's normal bilaterally Mouth: Yes moist mucous membranes Throat: abnormal tonsil on the right other (stone) Resp: Effort & Inspection: normal respiratory effort and able to speak in complete sentences Auscultation: clear to auscultation bilaterally, no crackles, no rales, no rhonchi and no wheezes Cardio: Palpation: normal PMI Rate: regular rate Rhythm: regular rhythm Heart sounds: S1 normal heart sound present and S2 normal heart sound present Neuro: General: oriented to person, oriented to place and oriented to time Cranial nerves: Yes CN's II-XII intact bilaterally Psych: Appearance: grossly normal Thought process: Normal thought process present Insight: Good insight present (Psych) Judgement: Good judgement present (Psych) Course Course Level of Care: Express Care Visit Vital Signs Vital signs: Vital Signs Temperature 98.1 F 10/12/24 17:11 Pulse Rate 88 10/12/24 17:11 Respiratory Rate 16 10/12/24 17:11 Blood Pressure 119/84 10/12/24 17:11 Pulse Oximetry 99 10/12/24 17:11 Oxygen Delivery Room Air 10/12/24 17:11 Temperature 98.1 F 10/12/24 17:11 Pulse Rate 88 10/12/24 17:11 Respiratory Rate 16 10/12/24 17:11 Blood Pressure 119/84 10/12/24 17:11 Pulse Oximetry 99 10/12/24 17:11 Oxygen Delivery Room Air 10/12/24 17:11 Reviewed MDM - URI/Sore Throat MDM Narrative Medical decision making narrative: Negative COVID, negative flu, negative strep. Culture pending. Symptoms likely viral in origin. Supportive care measures discussed. Discharge instructions reviewed with patient, as well as provided in writing per nursing staff. The instructions also include specific and strict return/GO TO THE ER as well as f/u information. All questions have been answered, and the patient deny any further questions with discharge and discharge plan. Some parts of this dictation were generated by voice recognition software and may contain typographical and/or grammatical inaccuracies. Differential Diagnosis Differential diagnosis: Likely upper respiratory infection, viral infection, influenza and pharyngitis Medical Records Attestation: I reviewed the patient's medical records. Lab Data Attestation: I reviewed the patient's lab results. Discharge Plan Discharge Clinical Impression: Upper respiratory infection Qualifiers: URI type: unspecified viral URI Qualified Code(s): J06.9 - Acute upper respiratory infection, unspecified Patient Disposition: Home, Self-Care Condition: Stable Instructions: Antibiotic Form, Cold Symptoms (ED) Additional Instructions: Use [id number] medications as needed to treat your symptoms. Follow package instructions. Follow-up with primary care provider. Emergency department for new or worse symptoms Patient Language: Estonian Prescriptions: No Action omeprazole 20 mg capsule,delayed release(DR/EC) 20 mg PO DAILY Qty: 90 0RF Follow-up/Referrals: Ina,MILLICENT Bernal [Primary Care Provider] - 2 Weeks Stand Alone Forms: Work/School Release IP Time of Disposition: 17:51
[2024-10-12 17:58] LABS: EDCOVIDSCREEN Negative (Negative); EDINFLUASCREEN Negative (Negative); EDINFLUBSCREEN Negative (Negative); EDSTREPNEGPOS1 Negative (Negative)
== END 2024-10-12 17:57 | disposition home or self-care (01) ==
PROVIDERS: Emergency Provider Nurse Practitioner Family; PCP Physician Assistant
DX: J06.9 Acute upper respiratory infection, unspecified (principal); Z20.822 Contact with and (suspected) exposure to COVID-19
CPT/HCPCS: 87081; 87426; 87804; 87880; 99213; G0463

== ENCOUNTER 2024-12-29 15:41 | Outpatient (CLI) | payer OTHER, SELFPAY ==
--- OUTSIDE RECORDS SUMMARY | 2024-12-29 17:53 | XMS_ITS | Clinical Summary ---
Author Organization [facility] Address 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 This disclosure is being madepursuant to the Care Everywhere program and may not contain all information available regarding this patient. Last updated 18.Exchangery Allergies No known active allergies Medications * Be aware that medications may not be up to date on this document. Alwaysverify current medications with the patient. blood glucose (OneTouch Verio) test stripIndications :Gestational diabetes mellitus (GDM), antepartum, gestational diabetes method of control unspecified (HCC) To monitor blood glucose (sugar) 4x daily- fasting and 1 hour after meals 150 strip 5 4 Active Blood Glucose Monitoring Suppl (OneTouch Verio Reflect) w/Device KITIndications:G estational diabetes mellitus (GDM), antepartum, gestational diabetes method of control unspecified (HCC) Use 1 Each as needed 1 kit 4 Active Lancets (ONETOUCH DELICA PLUS 33G EXTRA FINE LANCET)Indicatio ns:Gestational diabetes mellitus (GDM), antepartum, gestational diabetes method of control unspecified (HCC) To monitor blood glucose (sugar) 4x daily- fasting and 1 hour after meals 150 Each 5 4 Active Vit-DSS-Fe Fum-FA ( vitamin with iron) tablet Take 1 (one) tablet by mouth once daily Active ferrous sulfate 325 (65 FE) MG tablet Take 1 (one) tablet by mouth once daily Active metroNIDAZOLE (Flagyl) 500 MG tablet Take 1 (one) tablet by mouth 2 times daily Active omeprazole (PriLOSEC) 40 MG capsule Take 1 (one) capsule by mouth daily before breakfast Active Active Problems Problem Noted Date Diagnosed Date Diet controlled gestational diabetes mellitus (GDM), antepartum 03/18/2024 36 weeks gestation of 03/18/2024 Immunizations Immunization Administration Dates Next Due TDAP (7yrs+) 07/30/2018 Social History Tobacco Use Types Packs/Day Years Used Date Smoking Tobacco: Former Smokeless Tobacco: Never Alcohol Use Standard Drinks/Week Comments Not Currently 0 (1 standard drink = 0.6 oz pur e alcohol) Comments No Sex and Gender Information Value Date Recorded Sex Assigned at Not on file Legal Sex Female 5:02 PM CDT Gender Identity Not on file Sexual Orientation Not on file Last Filed Vital Signs Vital Sign Reading Time Taken Comments Blood Pressure 117/78 03/18/2024 1:32 PM CDT Pulse 83 03/18/2024 1:32 PM CDT Temperature 36.7 C (98.1 F) 05/14/2017 6:34 PM CDT Respiratory Rate 16 05/14/2017 6:34 PM CDT Oxygen Saturation 98% 05/14/2017 6:34 PM CDT Inhaled Oxygen Concentration - - Weight 90.9 kg (200 lb 6.4 oz) 03/18/2024 1:32 P M CDT Height 152.4 cm (5') 02/19/2024 11:34 AM CDT Body Mass Index 39.14 02/19/2024 11:34 AM CDT Plan of Treatment Health Maintenance Due Date Last Done Comments PAP SMEAR 1988 HIV SCREENING 2003 HEPATITIS C SCREENING 10/18/2006 HEPATITIS B VACCINE (1 of 3 - 19+ 3-dose series) 2007 COVID-19 VACCINE (2023-2 5 season) 2024 08/27/2021, 11/26/2020, 11/05/2020 DEPRESSION SCREENING 09/09/2024 INFLUENZA VACCINE (Season Ended) 2025 DTAP/TDAP/TD VACCINES (2 - T d or Tdap) 07/30/2028 07/30/2018 ZOSTER VACCINE (1 of 2) 2038 HIB VACCINE Aged Out No longer eligi ble based on patient's age to complete this topic HPV VACCINE Aged Out No longer eligi ble based on patient's age to complete this topic MENINGOCOCCAL (Group B) VACCINE SHARED DECISION-MAKING Aged Out No longer eligible based on patient's age to complete this topic MENINGOCOCCAL GROUPS A/C/Y/W VACCINE Aged Out No longer eligible b ased on patient's age to complete this topic PNEUMOCOCCAL VACCINE Aged Out No long er eligible based on patient's age to complete this topic Insurance [facility]
--- OUTSIDE RECORDS SUMMARY | 2024-12-29 17:53 | XMS_ITS | Data Portability ---
Author Organization [facility] Address [address] [place] [address] Care Team Providers Care Wrapper Selector Name Role Phone BALDOALEM RODGERS Primary Care Provider Unavailab le Assessment No assessment recorded. Plan of Treatment Reminders Order Date Submit Date Provider Last Modified By Organization Details Last Modified Time Details Appointments None recorded. Lab iron + total iron-daisha ng capacity (TIBC), serum 2024 025 [facility], [address] [place] [address], [address], 13:07:48 ferritin, serum or plasma 2024 025 [facility], [address] [place] [address], [address], 13:07:51 TSH + free T4, serum 2024 025 [facility], [address] [place] [address], [address], 5 13:07:44 lipid panel, serum 2024 025 [facility], [address] [place] [address] [place], [place], [address], 5 13:07:43 CBC w/ auto diff 2024 025 [facility], [address] [place] [address] 2, [place], [address], 5 13:07:52 CMP, serum or plasma 2024 025 [facility], [address] [facility] [place] [facility], [facility] 2, [place], [address], 13:07:46 cobalamin and folate panel, serum 2024 025 [facility], [address] [facility] 2, [place], [address], 13:07:47 HbA1c (hemoglobi n A1c), blood 2024 025 [facility], [address] [facility] [place] [facility], [facility] 2, [place], [address], 5 13:07:49 magnesium, serum or plasma 2024 025 [facility], [address] [place] [address] 2, [place], [address], 13:07:50 Referral None recorded. Procedures None recorded. Surgeries None recorded. Imaging holter monitor 2024 025 [facility] [address] [place] [address] [address], [address], 14:52:55 Medication Orders omeprazole 40 mg capsule,de layed release 2024 025 [id number], [address] [place], [place], [id number], 11:13:11 Patient TargetsNo targets recorded. Patient Instructions Encounter Date Encounter Id Patient Instructions Last Modified By Organization Details Last Modified Time 10/15/2024 [id number] A healthy lifestyle: care instructions [email or web address] Not available 10/15/2024 11:13:03 Reason for Referral None Reported. Results Created Date Observation Date Name Description Value Unit Range Abnormal Flag Note LastModifiedBy Organization Detail LastModifiedTime 10/15/1910/16/2024 LIPID PANEL W/ CHOL/ HDL RATIO cholesterol, total 141 mg/dL 100-19 9 Not Available [facility] ([facility]) [address] [place], [address], 10/16/2024 13:07:43 10/15/19 25 10/16/2024 LIPID PANEL W/ CHOL/ HDL RATIO triglyceride s 50 mg/dL 0-149 Not Available [facility] ([facility]) [address] [place], [address], 10/16/2024 13:07:43 10/15/19 25 10/16/2024 LIPID PANEL W/ CHOL/ HDL RATIO HDL cholesterol 62 mg/dL >39 Not Available [facility] ([facility]) [address] [facility], [place], [address], 10/16/2024 13:07:43 10/15/19 25 10/16/2024 LIPID PANEL W/ CHOL/ HDL RATIO VLDL cholesterol robin 11 mg/dL 5-40 Not Available [facility] ([facility]) [address] [place], [address], 10/16/2024 13:07:43 10/15/19 25 10/16/2024 LIPID PANEL W/ CHOL/ HDL RATIO LDL chol calc ([facility]) 68 mg/dL 0-99 Not Available [facility] ([facility]) [address] [place], [address], 10/16/2024 13:07:43 10/15/19 25 10/16/2024 LIPID PANEL W/ CHOL/ HDL RATIO T. chol/HDL ratio 2.3 ratio 0.0-4. 4 T. Chol/ HDL Ratio Men Women 1/2 Avg.R isk 3.4 3.3 Avg.R isk 5.0 4.4 2X Avg.R isk 9.6 7.1 3X Avg.R isk 23.4 11.0 Not Available [facility] ([facility]) [address] [place], [address], 10/16/2024 13:07:43 10/15/19 25 10/16/2024 TSH+F REE T4 TSH 1.130 uIU/m L 0.450- 4.500 Not Available [facility] ([facility]) [address] [facility], [place], [address], 10/16/2024 13:07:44 10/15/19 25 10/16/2024 TSH+F REE T4 T4,free(dire ct) 1.09 NG/dL 0.82-1 .77 Not Available [facility] ([facility]) [address] [place], [address], 10/16/2024 13:07:44 10/15/19 25 10/16/2024 COMP. METAB OLIC PANEL (14) glucose 92 mg/dL 70-99 Not Available [facility] ([facility]) [address] [place], [address], 10/16/2024 13:07:45 10/15/19 25 10/16/2024 COMP. METAB OLIC PANEL (14) BUN 9 mg/dL 6-20 Not Available [facility] ([facility]) [address] [place], [address], 10/16/2024 13:07:45 10/15/19 25 10/16/2024 COMP. METAB OLIC PANEL (14) creatinine 0.59 mg/dL 0.57-1 .00 Not Available [facility] ([facility]) [address] [place], [address], 10/16/2024 13:07:45 10/15/19 25 10/16/2024 COMP. METAB OLIC PANEL (14) eGFR 120 mL/mi n/1.7 3 >59 Not Available [facility] ([facility]) [address] [place], [address], 10/16/2024 13:07:45 10/15/19 25 10/16/2024 COMP. METAB OLIC PANEL (14) BUN/creatini ne ratio 15 9-23 Not Available [facility] ([facility]) [address] [facility] [place], [address], 10/16/2024 13:07:45 10/15/19 25 10/16/2024 COMP. METAB OLIC PANEL (14) sodium 139 mmol/ L 134-14 4 Not Available [facility] ([facility]) [address] [facility] [place], [address], 10/16/2024 13:07:45 10/15/19 25 10/16/2024 COMP. METAB OLIC PANEL (14) potassium 4.4 mmol/ L 3.5-5. 2 Not Available [facility] ([facility]) [address] [facility], [place], [address], 10/16/2024 13:07:45 10/15/19 25 10/16/2024 COMP. METAB OLIC PANEL (14) chloride 102 mmol/ L 96-106 Not Available [facility] ([facility]) [address] [facility] [place], [address], 10/16/2024 13:07:45 10/15/19 25 10/16/2024 COMP. METAB OLIC PANEL (14) carbon dioxide, total 22 mmol/ L 20-29 Not Available [facility] ([facility]) [address] [facility] [place], [address], 10/16/2024 13:07:45 10/15/19 25 10/16/2024 COMP. METAB OLIC PANEL (14) calcium 8.9 mg/dL 8.7-10 .2 Not Available [facility] ([facility]) [address] [facility] [place], [address], 10/16/2024 13:07:45 10/15/19 25 10/16/2024 COMP. METAB OLIC PANEL (14) protein, total 6.6 g/dL 6.0-8. 5 Not Available [facility] ([facility]) [address] [place], [address], 10/16/2024 13:07:45 10/15/19 25 10/16/2024 COMP. METAB OLIC PANEL (14) albumin 4.3 g/dL 3.9-4. 9 Not Available [facility] ([facility]) [address] [place], [address], 10/16/2024 13:07:45 10/15/19 25 10/16/2024 COMP. METAB OLIC PANEL (14) globulin, total 2.3 g/dL 1.5-4. 5 Not Available [facility] ([facility]) [address] [place], [address], 10/16/2024 13:07:45 10/15/19 25 10/16/2024 COMP. METAB OLIC PANEL (14) bilirubin, total 0.2 mg/dL 0.0-1. 2 Not Available [facility] ([facility]) [address] [place], [address], 10/16/2024 13:07:45 10/15/19 25 10/16/2024 COMP. METAB OLIC PANEL (14) alkaline phosphatase 72 IU/L 44-121 Not Available [facility] ([facility]) [address] [place], [address], 10/16/2024 13:07:45 10/15/19 25 10/16/2024 COMP. METAB OLIC PANEL (14) AST (SGOT) 19 IU/L 0-40 Not Available [facility] ([facility]) [address] [place], [address], 10/16/2024 13:07:45 10/15/19 25 10/16/2024 COMP. METAB OLIC PANEL (14) ALT (SGPT) 13 IU/L 0-32 Not Available [facility] ([facility]) [address] [place], [address], 10/16/2024 13:07:45 10/15/19 25 10/16/2024 VITAM IN B12 AND FOLAT E vitamin B12 733 pg/mL 232-12 45 Not Available [facility] ([facility]) [address] [facility], [place], [address], 10/16/2024 13:07:47 10/15/19 25 10/16/2024 VITAM IN B12 AND FOLAT E folate (folic acid), serum 12.4 NG/mL >3.0 A serum folat e fabiola ntrat ion of less than 3.1 ng/mL is consi dered to repre sent clini robin defic iency . Not Available [facility] ([facility]) [address] [facility], [place], [address], 10/16/2024 13:07:47 10/15/19 25 10/16/2024 IRON AND TIBC iron bind.cap.(TI BC) 431 ug/dL 250-45 0 Not Available [facility] ([facility]) [address] [place], [address], 10/16/2024 13:07:48 10/15/19 25 10/16/2024 IRON AND TIBC UIBC 404 ug/dL 131-42 5 Not Available [facility] ([facility]) [address] [place], [address], 10/16/2024 13:07:48 10/15/19 25 10/16/2024 IRON AND TIBC iron 27 ug/dL 27-159 Not Available [facility] ([facility]) [address] [place], [address], 10/16/2024 13:07:48 10/15/19 25 10/16/2024 IRON AND TIBC iron saturation 6 % 15-55 alert low Not Available [facility] ([facility]) [address] [place], [address], 10/16/2024 13:07:48 10/15/19 25 10/16/2024 HEMOG LOBIN A1C hemoglobin A1C 5.5 % 4.8-5. 6 Predi abete s: 5.7 - 6.4 Diabe israel: >6.4 Glyce anita contr ol for adult s with diabe israel: <7.0 Not Available [facility] ([facility]) [address] [place], [address], 10/16/2024 13:07:49 10/15/19 25 10/16/2024 MAGNE SIUM magnesium 2.1 mg/dL 1.6-2. 3 Not Available [facility] ([facility]) [address] [place], [address], 10/16/2024 13:07:50 10/15/19 25 10/16/2024 SWATHI TIN ferritin 11 NG/mL 15-150 below low normal Not Available [facility] ([facility]) [address] [place], [address], 10/16/2024 13:07:51 10/15/19 25 10/16/2024 CBC WITH DIFFE RENTI AL/PL ATELE T WBC 5.3 x10e3 /uL 3.4-10 .8 Not Available [facility] ([facility]) [address] [place], [address], 10/16/2024 13:07:52 10/15/19 25 10/16/2024 CBC WITH DIFFE RENTI AL/PL ATELE T RBC 4.75 x10e6 /uL 3.77-5 .28 Not Available [facility] ([facility]) [address] [place], [address], 10/16/2024 13:07:52 10/15/19 25 10/16/2024 CBC WITH DIFFE RENTI AL/PL ATELE T hemoglobin 12.3 g/dL 11.1-1 5.9 Not Available [facility] ([facility]) [address] [facility] [place], [address], 10/16/2024 13:07:52 10/15/19 25 10/16/2024 CBC WITH DIFFE RENTI AL/PL ATELE T hematocrit 39.6 % 34.0-4 6.6 Not Available [facility] ([facility]) [address] [place], [address], 10/16/2024 13:07:52 10/15/19 25 10/16/2024 CBC WITH DIFFE RENTI AL/PL ATELE T MCV 83 fL 79-97 Not Available [facility] ([facility]) [address] [place], [address], 10/16/2024 13:07:52 10/15/19 25 10/16/2024 CBC WITH DIFFE RENTI AL/PL ATELE T MCH 25.9 pg 26.6-3 3.0 below low normal Not Available [facility] ([facility]) [address] [place], [address], 10/16/2024 13:07:52 10/15/19 25 10/16/2024 CBC WITH DIFFE RENTI AL/PL ATELE T MCHC 31.1 g/dL 31.5-3 5.7 below low normal Not Available [facility] ([facility]) [address] [place], [address], 10/16/2024 13:07:52 10/15/19 25 10/16/2024 CBC WITH DIFFE RENTI AL/PL ATELE T RDW 14.3 % 11.7-1 5.4 Not Available [facility] ([facility]) [address] [place], [address], 10/16/2024 13:07:52 10/15/19 25 10/16/2024 CBC WITH DIFFE RENTI AL/PL ATELE T platelets 188 x10e3 /uL 150-45 0 Not Available [facility] ([facility]) [address] [facility] [place], [address], 10/16/2024 13:07:52 10/15/19 25 10/16/2024 CBC WITH DIFFE RENTI AL/PL ATELE T neutrophils 61 % notest ab. Not Available [facility] ([facility]) [address] [facility], [place], [address], 10/16/2024 13:07:52 10/15/19 25 10/16/2024 CBC WITH DIFFE RENTI AL/PL ATELE T lymphs 27 % notest ab. Not Available [facility] ([facility]) [address] [facility], [place], [address], 10/16/2024 13:07:52 10/15/19 25 10/16/2024 CBC WITH DIFFE RENTI AL/PL ATELE T monocytes 10 % notest ab. Not Available [facility] ([facility]) [address] [facility], [place], [address], 10/16/2024 13:07:52 10/15/19 25 10/16/2024 CBC WITH DIFFE RENTI AL/PL ATELE T eos 2 % notest ab. Not Available [facility] ([facility]) [address] [facility], [place], [address], 10/16/2024 13:07:52 10/15/19 25 10/16/2024 CBC WITH DIFFE RENTI AL/PL ATELE T basos 0 % notest ab. Not Available [facility] ([facility]) [address] [facility], [place], [address], 10/16/2024 13:07:52 10/15/19 25 10/16/2024 CBC WITH DIFFE RENTI AL/PL ATELE T neutrophils (absolute) 3.2 x10e3 /uL 1.4-7. 0 Not Available [facility] ([facility]) [address] [facility], [place], [address], 10/16/2024 13:07:52 10/15/19 25 10/16/2024 CBC WITH DIFFE RENTI AL/PL ATELE T lymphs (absolute) 1.4 x10e3 /uL 0.7-3. 1 Not Available [facility] ([facility]) [address] [facility], [place], [address], 10/16/2024 13:07:52 10/15/19 25 10/16/2024 CBC WITH DIFFE RENTI AL/PL ATELE T monocytes(ab solute) 0.6 x10e3 /uL 0.1-0. 9 Not Available [facility] ([facility]) [address] [facility], [place], [address], 10/16/2024 13:07:52 10/15/19 25 10/16/2024 CBC WITH DIFFE RENTI AL/PL ATELE T eos (absolute) 0.1 x10e3 /uL 0.0-0. 4 Not Available [facility] ([facility]) [address] [facility], [place], [address], 10/16/2024 13:07:52 10/15/19 25 10/16/2024 CBC WITH DIFFE RENTI AL/PL ATELE T baso (absolute) 0.0 x10e3 /uL 0.0-0. 2 Not Available [facility] ([facility]) [address] [facility], [place], [address], 10/16/2024 13:07:52 10/15/19 25 10/16/2024 CBC WITH DIFFE RENTI AL/PL ATELE T immature granulocytes 0 % notest ab. Not Available [facility] ([facility]) [address] [place], [address], 10/16/2024 13:07:52 10/15/19 25 10/16/2024 CBC WITH DIFFE RENTI AL/PL ATELE T immature grans (abs) 0.0 x10e3 /uL 0.0-0. 1 Not Available [facility] ([facility]) [address] [facility], [place], [address], 10/16/2024 13:07:52 Result Notes None recorded. Problems Name Problem SNOMED Code Status Onset Date Resolution Date Notes Provider Name and Address Organization Details Recorded Time Body mass index 30+ - obesity 147253493 Active 2024 Coty Salcedo MA null, [facility] 5 10:37:44 Obesity 106478876 Active 2024 EMIR Rivera Attn: Accountalejandro g,[address] [facility], [place], [address], [facility] 5 10:54:46 Gastroesoph ageal reflux disease without esophagitis 566290102 Active 2024 EMIR Rivera Attn: Accountin g,[address] [place], [address], [facility] 5 09:24:42 Past history of gestational diabetes mellitus 682454644 Active 2024 EMIR Rivera Attn: Accountin g,[address] [facility], [place], [address], [facility] 5 09:25:38 Positive screening for depression on PHQ-9 (Patient Health Questionnai re 9) 8175092908607 00 Active 2024 EMIR Rivera Attn: Accountin g,[address] [place], [address], [facility] 5 09:26:10 Problem Notes None recorded. Procedures Surgical History Date Name Laterality Status Provider Name and Address Organization Details Recorded Time section completed Coty Salcedo MA [facility] 10/15/2024 12:03:57 Imaging Results None recorded. Procedure Notes None recorded. Medical Equipment None Reported. Allergies No known drug allergies Medications Name Sig Start Date Stop Date Status Note LastModified by Organization Details LastModified Time fluconazole 150 mg tablet TAKE 1 TABLET BY MOUTH 1 TIME 10/15 completed Not Available Not Available Not Available metronidazo le 500 mg tablet TAKE 1 TABLET BY MOUTH EVERY 8 HOURS active Not Available Not Available No t Available ciprofloxac in 500 mg tablet TAKE 1 TABLET BY MOUTH EVERY 12 HOURS active Not Available Not Available No t Available omeprazole 40 mg capsule,del ayed release TAKE 1 CAPSULE BY MOUTH EVERY DAY NEEDED active Not Available Not Available No t Available oxycodone-a cetaminophe n 5 mg-325 mg tablet TAKE 1 TABLET BY MOUTH EVERY 6 HOURS NEEDED FOR PAIN 10/15 completed Not Available Not Available Not Available amoxicillin 875 mg tablet TAKE 1 TABLET BY MOUTH TWICE DAILY FOR 7 DAYS active Not Available Not Available No t Available omeprazole 20 mg capsule,del ayed release TAKE 1 CAPSULE BY MOUTH DAILY 10/15 completed Not Available Not Available Not Available ibuprofen 600 mg tablet Take 1 tablet as needed by oral route for 7 days. active Not Available Not Available No t Available ondansetron 4 mg disintegrat ing tablet DISSOLVE 1 TABLET ON THE TONGUE EVERY 4 TO 6 HOURS NEEDED FOR NAUSEA active Not Available Not Available No t Available ferrous gluconate 324 mg (38 mg iron) tablet TAKE 1 TABLET BY MOUTH EVERY DAY active Not Available Not Available No t Available OneTouch Verio test strips USE TO CHECK BLOOD SUGAR FOUR TIMES DAILY 10/15 completed Not Available Not Available Not Available OneTouch Delica Plus Lancet 33 gauge TEST BLOOD GLUCOSE 4 TIMES DAILY DURING FASTING AND 1 HOUR AFTER MEALS 10/15 completed Not Available Not Available Not Available OneTouch Delica Plus Lancet 30 gauge USE TO CHECK BLOOD SUGAR FOUR TIMES DAILY 10/15 completed Not Available Not Available Not Available OneTouch Verio Reflect Meter DIRECTED 10/15 completed only when she had baby Not Available Not Available Not Available Vitals Date Recorded Body weight Body mass index (BMI) Body height Respiratory rate Oxygen saturation Oxygen saturation in Arterial blood by Pulse oximetry Heart rate Systolic blood pressure Diastolic blood pressure Provider Name and Address Organization Details Last Updated DateTime 5 [address].8 1 g 34.4 kg/m2 154.94 cm 18 /min 99 % 99 % 100 /min 126 mm[Hg] 82 mm[Hg] Coty Salcedo [place] - [facility] 5 10:42:28 Date Recorded Heart rate Systolic blood pressure Diastolic blood pressure Provider Name and Address Organization Details Last Updated DateTime 10/15/2024 83 /min 130 mm[Hg] 80 mm[Hg] EMIR Rivera Attn: Accounting,[address] [facility], [place], [address], [place] - [facility] 10/15/2024 11:09:06 Social History Question Answer Notes LastModified by Organizat ion Details LastModified Time Do You Have An Advance Directive? No Information n ot available 10/15/2024 Are You Blind Or Do You Have Difficulty Seeing? No Information n ot available 10/15/2024 What Is Your Level Of Caffeine Consumption? Occasional Information not available 10/15/2024 In The 14 Days Before Symptom Onset, Have You Had Close Contact With A Laboratory-confirm ed COVID-19 While That Case Was Ill? No Information n ot available 10/15/2024 In The 14 Days Before Symptom Onset, Have You Had Close Contact With A Person Who Is Under Investigation For COVID-19 While That Person Was Ill? No Information not available 10/15/2024 Have You Been To An Area Known To Be High Risk For COVID-19? No Information not available 10/15/2024 Are You Currently Employed? Yes Information not available 10/15/2024 Are You Deaf Or Do You Have Serious Difficulty Hearing? No Information not available 10/15/2024 What Type Of Diet Are You Following? REGULAR Information n ot available 10/15/2024 What Is The Highest Grade Or Level Of School You Have Completed Or The Highest Degree You Have Received? [id number] Information not available 10/15/2024 What Is Your Occupation? Teacher Information not available 10/15/2024 Are There Any Guns Present In Your Home? No Information not available 10/15/2024 What Was The Date Of Your Most Recent Tobacco Screening? 10/15/2024 Information not available 10/15/2024 What Is Your Relationship Status? Unknown Information not available 10/15/2024 Do You Use Your Seat Belt Or Car Seat Routinely? Yes Information not available 10/15/2024 Do You Have Smoke And Carbon Monoxide Detectors In Your Home? Yes Information not available 10/15/2024 Do You Feel Stressed (tense, Restless, Nervous, Or Anxious, Or Unable To Sleep At Night)? AG4315-5 Information not available 10/15/2024 Do You Use Any Illicit Or Recreational Drugs? No Information not available 10/15/2024 Do You Use Sunscreen Routinely? Yes Information not available 10/15/2024 Sex: Female Functional Status Question Answer Note LastModified by Organizat ion Details LastModified Time Are you able to care for yourself? Yes Information not available 10/15/2024 What is your exercise level? Occasional rare Information not available 10/15/2024 Mental Status None recorded. Family History Nothing Reported. Medical History Condition Response Coronary Artery Disease N Other N High Blood Pressure N Atrial Fibrillation N Thyroid Problems N Kidney or Bladder Problems N Depression N COPD N Blood Clots N GI Problems N Have you had a mammogram in the last yea r? N Skin Problems N Anemia N Heart Attack (ID) N Diabetes N Anxiety Disorder N Muscle, Joint, or Bone Problems N Seizures/Epilepsy N Have you had a colonoscopy in the last 1 0 years? N Acid Reflux (GERD) N Cancer N Stroke N Allergies N Asthma N Have you had a PSA blood test in the las t year? N High Cholesterol N Hepatitis N Liver Disease N Headaches N Osteoporosis N Heart Failure N Gynecological History Statement/Question Response Flow Moderate Date of LMP 09/16/2024 Menses Monthly Y Duration of Flow (days) 7 Current Control Method None LMP Approximate Obstetrics History GPAL:G 2 P 2 0 0 2 Type Value Full Term 2 Induced 0 Spontaneous 0 Premature 0 Living 2 Total 2 Immunizations Vaccine Type Date Status Note Provider Nam e and Address Organization Details Recorded Time COVID-19, mRNA, LNP-S, PF, 30 mcg/0.3 mL dose 11/05/2020 completed DANIELLA L[place], [place] - [facility] 10/15/2024 10:37:37 COVID-19, mRNA, LNP-S, PF, 30 mcg/0.3 mL dose 11/26/2020 completed [place]IELLA [place], [place] [facility] 10/15/2024 10:37:37 COVID-19, mRNA, LNP-S, PF, 30 mcg/0.3 mL dose 08/27/2021 completed Coty Salced[place], [place] [facility] 10/15/2024 10:37:37 Tdap 04/06/2024 completed Coty Salced[place], [place] [facility] 10/15/2024 10:37:37 Tdap 07/30/2018 completed Coty Salced[place], [place] [facility] 10/15/2024 10:37:37 Past Encounters Encounter ID Performer Location Encounter Start Date Encounter Closed Date Diagnosis/Indication Diagnosis SNOMED-CT Code Diagnosis ICD10 Code Diagnosis Note [id number] EMIR Rivera [facility] [place] [address] [place] [address] 10/15/2024 10:20:32 10/15/2024 11:48:15 Body mass index 30+ - obesity 278040500 Z68.34 bmi 34.4 Obesity 923365283 E66.9 discussed healthy diet, exercise, controllin g carbohydra israel and added sugars in the diet Gastroesop hageal reflux disease without esophagitis 618084694 K21.9 Increased 2 omeprazole 40 mg daily for better management of acid reflux Adult heal th examination 028403767 Z00.01 New patient exam completed state 0274811 1 Z39.2 6 months post . . Alteration in heart rate 737090462 R00.9 Check screening magnesium level and send for a 48 hour Holter monitor for baseline evaluation on heart rate that patient reports is variable at times Dizziness 184489859 R42 For underlying dizziness we will screen CBC, CMP and vitamin B12 and folate Past pregn funmilayo history of gestational diabetes mellitus 564457753 Z86.32 History of gestationa l diabetes. We will order an updated A1c Thyroid di sorder screening 338135083 Z13.29 Routine thyroid function testing ordered Cholesterol screening 27 8105296 Z13.220 Fasting lipid panel ordered Iron deficiency 86636748 E61.1 Underlying iron deficiency reported we will check an updated iron studies panel Positive s creening for depression on PHQ-9 (Patient Health Questionnaire 9) 8893710126 58570 Z13.31 Patient scored a 9 on screening today. She has no complaints or concerns about her mental health Health Concerns Section Related Observation LastModified by Organization Detai ls LastModified Time None Recorded Concern Status LastModified by Organization Details LastModified Time None Recorded Advance Directives Directive N: Payers Encounter Date Sequence Insurance Name Policy Number Policy Pereyra Covered Member ID Pereyra Member ID Guarantor Name 10/15/2024 1 [facility] [id number] Nilam Dang [id number] Nilam Dang Notes Date Note Type Note Provider Name and Address Organization Details Recorded Time 10/15/2024 text/html Reflux/GERDRepor te d bypatient.Notes:Emir bonilla has underlying acid reflux and has been on omeprazole 20 mg daily. She still is having some symptom breakthrough Patient presents as a new patient. She does have some underlying symptoms which she feels like include her heart rate variable and some dizziness. She also has a history of iron deficiency. She would like to have updated labs. She is as well she has a history of gestational diabetes. EMIR Rivera Attn: [address] [place], [address], [facility] 11/07/2024 09:26:37 OBGyn Episode No OBEpisode recorded.
--- OUTSIDE RECORDS SUMMARY | 2024-12-29 17:53 | XMS_ITS | CONTINUITY OF CARE DOCUMENT ---
Author Name cee mike Address Unknown Organization [facility] Address [address] [place] [address] Phone [phone] Care Team Providers Care Management Trainee Name Role Phone James RAY, Autumn Unavailable [phone] TRISTEN FRANCOIE Unavailable [phone] HOPHUNG MCWILLIAMS Unavailable [phone] PROBLEMS Condition Status Date Provider Notes Abnormal EKG normal ECHO active Autumn arambula MD Chest pain, nl routine stres s, calcium score 0, 01/27 active Reid Bui Shortness of breath active Autumn Ramirez MD Lower extremity edema, bilateral active Hernando Ramirez MD ENCOUNTERS Date Type Provider Location Encounter Diag nosis - In-person encounter Office Visit Autumn Ramirez MD [facility] Chest pain, nl routine stress, calcium score 0, 01/27Shortness of breathLower extremity edema, bilateral - In-person encounter Office Visit Autumn Ramirez MD [facility] Abnormal EKG normal ECHO VITAL SIGNS Date Observation Value Provider weight E&M 188 [lb_av] Darian sotelo Body Mass Index (Ratio) 36.71 kg/m2 Chadwick Ramirez MD blood pressure, cuff size large Ke suzi Gruber blood pressure, diastolic 80 mm[Hg] Soham rri Allyn blood pressure, systolic 122 mm[Hg] Conrado Fulleryovany oxygen saturation, oximetry 98 % Andria Fulleryanidylan respiratory rate E&M 16 /min Andria Gabriel dedrickcarleechance pulse rate 87 /min Andria Castillo lder weight E&M 188 [lb_av] Andria Castillo lder height E&M 60 [in_i] Andria Castillo er Body Mass Index (Ratio) 36.91 kg/m2 Chadwick Ramirez MD blood pressure, cuff size regular Cy kena Lindsay blood pressure, diastolic 76 mm[Hg] Cy kena Lindsay blood pressure, systolic 120 mm[Hg] Chel Lindsay oxygen saturation, oximetry 98 % Susan Lindsay respiratory rate E&M 16 /min Susan Lindsay pulse rate 97 /min Susan Roman l height E&M 60 [in_i] Susan Roman l weight E&M 189 [lb_av] Susan Roman l ALLERGIES No Known Drug Allergies HISTORY OF MEDICATION USE Medication Status Instructions Dates Provider Indications Com ments MULTIVITAMINS ORAL CAPSULE active ONE TAB. DAILY Andria Norigo OMEPRAZOLE 40 MG ORAL CAPSULE DELAYED RELEASE active one capsule daily Andria Nocurtisdylan CYCLOBENZAPRINE HCL TABLET active as directed Andria Nosusanajahairayanidylan SOCIAL HISTORY Date Observation Value Provider social history E&M S moking History: [place] fox is a former smoker. Sheyla Love social history reviewed E&M revi ewed - no changes required Sheyla Love number of years as a smoker 10 a Andria Allyn smoking history, tot al pack/day 5 a day Andria Allyn smoking, year quit 2018 Andria Genia triana cigarette use yes Andria Marqueznf elder smoking status Former smoker Andria Marquez nfelder social history E&M S moking History: Chica fox has never smoked. Autumn Ramirez MD social history reviewed E&M revi ewed - no changes required Autumn Ramirez MD smoking status Never smoker Susan Mariama webber FAMILY HISTORY Family Member Condition Maternal Grandmother Family History of H ypertension: Maternal Grandmother Family History of D iabetes: INSURANCE PROVIDERS Payer name Policy type / Coverage type [place] [employer] ID [facility] [id number] Other [id number] ADVANCE DIRECTIVES Name Date DISCUSSED - NO DECISION MADE TREATMENT PLAN Date Name Performer Telehealth, 1 year f/u. Reid Na t Telehealth, 1 year f/u. Reid Na t Telehealth, 1 year f/u. Reid Na [facility] Cardiology Follow up Sheyla Love Cardiology Follow up Sheyla Love Cardiology Follow up Sheyla Love Cardiology Follow up : O rders: S tress Routine (CPT-11090) C T, Coronary Calcium Score (CPT-27667) Sheyla Love Cardiology New Patient Autumn wolff MD Cardiology New Patient Autumn wolff MD Date Name CT, Coronary Calcium Score Stress Routine HISTORY OF PROCEDURES Procedure Date Procedure Name Provider Procedure Notes S tatus CT- Coronary CA score Autumn Ramirez MD completed EKG Autumn Ramirez MD completed EKG Autumn Ramirez MD completed
--- OUTSIDE RECORDS SUMMARY | 2024-12-29 17:53 | XMS_ITS | Clinical Summary ---
Author Organization Cirilo Vilchis [facility] Address [address] [place] [address] Care Team Providers Care Monitor And Storage Bin Tender Name Role Phone Unavailable Primary Care Provider Unavailabl e Social History Tobacco Use Types Packs/Day Years Used Date Smoking Tobacco: Never Assessed Comments Unknown Sex and Gender Information Value Date Recorded Sex Assigned at Not on file Legal Sex Female 1:22 PM CDT Gender Identity Not on file Sexual Orientation Not on file Plan of Treatment Health Maintenance Due Date Last Done Comments HEPATITIS B VACCINES (1 of 3 - 19+ 3-dose series) 2007 HPV/Cotest (21-29) 2009 CERVICAL CANCER SCREENING 2018 HPV/Cotest (30-65) 2018 PAP SMEAR 2018 INFLUENZA VACCINE (#1) 2024 DTAP/TDAP/TD VACCINES (2 - T d or Tdap) 07/30/2028 07/30/2018 HPV VACCINES Aged Out No longer eligi ble based on patient's age to complete this topic PNEUMOCOCCAL VACCINE 0-49 YEARS Aged Out No longer eligible based on patient's age to complete this topic
== END 2024-12-29 15:42 | disposition home or self-care (01) ==
LOC: ANHCARD 15:51
PROVIDERS: PCP Physician Assistant; Visit Provider Physician Assistant
DX: R00.9 Unspecified abnormalities of heart beat (principal)
CPT/HCPCS: 93242

== ENCOUNTER 2025-09-03 05:35 | Inpatient (IN) | payer OTHER, SELFPAY ==
--- NOTE | 2025-09-01 14:19 | PM.IMHP2 ---
H&P: HPI History of Present Illness Date/Time: 09/01/25 14:19 Chief Complaint: Intrauterine at term Narrative: 20 who presents at 39 weeks for repeat . Review of Systems Cardiovascular: Cardiovascular: Denies chest pain, Denies leg edema, Denies palpitations, Denies dyspnea and Denies dyspnea on exertion Respiratory: Respiratory: Denies cough, Denies dyspnea and Denies dyspnea on exertion Gastrointestinal: Gastrointestinal: Denies abdominal pain, Denies constipation, Denies diarrhea, Denies nausea and Denies vomiting Genitourinary: Genitourinary: Denies hematuria, Denies urinary frequency, Denies dysuria, Denies pelvic pain, Denies urinary incontinence and Denies vaginal discharge Neurologic: Reports system reviewed and no additional complaints, except as documented Psychiatric: Psychiatric: Reports no additional psychiatric complaints Endocrine: Endocrine: Denies palpitations PMFSH Past Medical History Medical History Suppression of menses Surgical History Surgical History History of delivery Family History Family History Grandparent Diabetes mellitus Hypertension Mother Breast cancer in situ Social History Social History Smoking status: Never smoker Second hand tobacco smoke exposure: No Alcohol intake: former Alcohol use details: occasional Substance use: never Lack of Transportation: No Lack of Food: Never True Current Housing: Decline to Answer Concerned About Future Housing: Decline to Answer Difficulty Paying Gas/Electric Bills: Decline to Answer Difficulty Paying for Meds: Decline to Answer Currently Unemployed: Decline to Answer Education: Decline to Answer Difficulty w/ Childcare or Family Care: Decline to Answer Living arrangements: with family Additional living arrangements comments: Occupation/Education: occupation Additional occupation/education comments: teacher Gender identity (if verbalized by the patient): Female Sexual Orientation (if Verbalized by the Patient): Straight or Heterosexual Spiritual care concerns: No Meds Home Medications and Allergies Home Medications ?Medication ?Instructions ?Recorded ?Confirmed ?Type omeprazole 20 mg capsule,delayed 20 mg PO DAILY #90 caps 10/06/24 08/23/25 Rx release ferrous gluconate 324 mg (38 mg 324 mg PO DAILY 02/23/25 08/23/25 History iron) tablet vits no.126-ferrous fum tablet PO 02/23/25 08/23/25 History 28 mg iron-folic acid 800 mcg tablet (Classic ) Allergies Allergy/AdvReac Type Severity Reaction Status Date / Time No Known Allergies Allergy Verified 08/23/25 17:38 Exam Const: General: no acute distress Eyes: EOM: EOMs intact bilaterally Neck: Neck: supple Thyroid: thyroid normal Chest: Breast/axilla inspection: normal inspection of the breasts Breast/axilla palpation: normal palpation of the breasts, normal palpation of the axillae and no axillary lymphadenopathy Resp: Effort & Inspection: normal respiratory effort Auscultation: clear to auscultation bilaterally Cardio: Rate: regular rate Rhythm: regular rhythm GI: Inspection: non-distended and other (Gravid) GI Palp: Yes Soft to palpation, No Tenderness to palpation present (GI) and No Guarding due to palpation present (GI) Auscultation: normal bowel sounds : Speculum Exam - Vagina: No vaginal bleeding OB/external & speculum: external exam normal; No vaginal bleeding Skin: General skin exam: normal color and no rashes or lesions noted Neuro: Cognition (Neuro): normal cognition Speech: normal speech Extrem: General: normal to inspection Psych: Mental Status: mental status grossly normal Affect: normal affect Assessment and Plan Assessment and plan (1) : Code(s): Z34.90 - Encounter for supervision of normal , unspecified, unspecified trimester Status: Acute Assessment and Plan: 34-year-old 022 who presents at 39 weeks for repeat Admit to L&D Routine admission orders Prenatals reviewed Rh positive GBS negative (2) Advanced maternal age (AMA) in : Status: Acute (3) History of section complicating : Code(s): O34.219 - Maternal care for unspecified type scar from previous delivery Status: Acute Assessment and Plan: Plan for repeat at 39 weeks
[2025-09-03] VITALS (71 sets, daily range): BP systolic 44–106; BP diastolic 30–75; PULSE 30–94; RESP 10–19; TEMP 36.3–36.7; O2SAT 87–100; BMI 39.3
--- OUTSIDE RECORDS SUMMARY | 2025-09-03 05:41 | XMS_ITS | Data Portability ---
Author Organization [facility] VITAPaolo Jean Address [address] [place] [address] Care Team Providers Care Assembly Line Supervisor Name Role Phone BALDOANA MARIAFRANKIE Primary Care Provider Unavailab le Assessment No assessment recorded. Plan of Treatment Reminders Order Date Submit Date Provider Last Modified By Organization Details Last Modified Time Details Appointments None recorded. Lab iron + total iron-bindin g capacity (TIBC), serum 2024 025 [facility], [address] [place] [address], [address], 13:07:48 ferritin, serum or plasma 2024 025 [facility], [address] [place] [address], [address], 5 13:07:51 TSH + free T4, serum 2024 025 [facility], [address] [place] [address], [address], 5 13:07:44 lipid panel, serum 2024 025 [facility], [address] [place] [address], [address], 5 13:07:43 CBC w/ auto diff 2024 025 [facility], [address] [place] [address], [address], 5 13:07:52 CMP, serum or plasma [address] [facility], [address] [facility] [address], [place], [address], 5 13:07:46 cobalamin and folate panel, serum 2024 025 [facility], [address] [place] [address] 2, [place], [address], 5 13:07:47 HbA1c (hemoglobin A1c), blood 2024 025 [facility], [address] [place] [address] 2, [place], [address], 5 13:07:49 magnesium, serum or plasma 2024 025 [facility], [address] [place] [address] 2, [place], [address], 5 13:07:50 Referral None recorded. Procedures None recorded. Surgeries None recorded. Imaging holter monitor 2024 025 [facility] ([facility]iology [facility]), [address] [place] [address] [address], [place], [address], 13:43:14 Medication Orders omeprazole 40 mg capsule,del ayed release 2024 025 [id number], [address] [place], [place], [id number], 11:13:11 Patient TargetsNo targets recorded. Patient Instructions Encounter Date Encounter Id Patient Instructions Last Modified By Organization Details Last Modified Time 10/15/2024 [id number] A healthy lifestyle: care instructions [email or web address] Not available 10/15/2024 11:13:03 Reason for Referral None Reported. Results Created Date Observation Date Name Description Value Unit Range Abnormal Flag Note LastModifiedBy Organization Detail LastModifiedTime 10/15/19 25 10/16/2024 LIPID PANEL W/ CHOL/ HDL RATIO cholesterol, total 141 mg/dL 100-19 9 Not Available [facility] ([facility]) [address] [place], [address], 10/16/2024 13:07:43 10/15/19 25 10/16/2024 LIPID PANEL W/ CHOL/ HDL RATIO triglyceride s 50 mg/dL 0-149 Not Available [facility] ([facility]) [address] [place], [address], 10/16/2024 13:07:43 10/15/19 25 10/16/2024 LIPID PANEL W/ CHOL/ HDL RATIO HDL cholesterol 62 mg/dL >39 Not Available [facility]) [address] [facility], [place], [address], 10/16/2024 13:07:43 10/15/19 25 10/16/2024 LIPID PANEL W/ CHOL/ HDL RATIO VLDL cholesterol robin 11 mg/dL 5-40 Not Available [facility] ([facility]) [address] [place], [address], 10/16/2024 13:07:43 10/15/19 25 10/16/2024 LIPID PANEL W/ CHOL/ HDL RATIO LDL chol calc ([facility]) 68 mg/dL 0-99 Not Available [facility]) [address] [place], [address], 10/16/2024 13:07:43 10/15/19 25 10/16/2024 LIPID PANEL W/ CHOL/ HDL RATIO T. chol/HDL ratio 2.3 ratio 0.0-4. 4 T. Chol/ HDL Ratio Men Women 1/2 Avg.R isk 3.4 3.3 Avg.R isk 5.0 4.4 2X Avg.R isk 9.6 7.1 3X Avg.R isk 23.4 11.0 Not Available [facility] ([facility]) [address] [place], [address], 10/16/2024 13:07:43 10/15/19 25 10/16/2024 TSH+F REE T4 TSH 1.130 uIU/m L 0.450- 4.500 Not Available [facility] ([facility]) [address] [facility], [place], [address], 10/16/2024 13:07:44 10/15/19 25 10/16/2024 TSH+F REE T4 T4,free(dire ct) 1.09 NG/dL 0.82-1 .77 Not Available [facility] ([facility]) [address] [facility] [place], [address], 10/16/2024 13:07:44 10/15/19 25 10/16/2024 COMP. METAB OLIC PANEL (14) glucose 92 mg/dL 70-99 Not Available [facility] ([facility]) [address] [place], [address], 10/16/2024 13:07:45 10/15/19 25 10/16/2024 COMP. METAB OLIC PANEL (14) BUN 9 mg/dL 6-20 Not Available [facility] ([facility]) [address] [place], [address], 10/16/2024 13:07:45 10/15/19 25 10/16/2024 COMP. METAB OLIC PANEL (14) creatinine 0.59 mg/dL 0.57-1 .00 Not Available [facility] ([facility]) [address] [place], [address], 10/16/2024 13:07:45 10/15/19 25 10/16/2024 COMP. METAB OLIC PANEL (14) eGFR 120 mL/mi n/1.7 3 >59 Not Available [facility] ([facility]) [address] [place], [address], 10/16/2024 13:07:45 10/15/19 25 10/16/2024 COMP. METAB OLIC PANEL (14) BUN/creatini ne ratio 15 9-23 Not Available [facility] ([facility]) [address] [facility] [place], [address], 10/16/2024 13:07:45 10/15/19 25 10/16/2024 COMP. METAB OLIC PANEL (14) sodium 139 mmol/ L 134-14 4 Not Available [facility] ([facility]) [address] [facility] [place], [address], 10/16/2024 13:07:45 10/15/19 25 10/16/2024 COMP. METAB OLIC PANEL (14) potassium 4.4 mmol/ L 3.5-5. 2 Not Available [facility] ([facility]) [address] [facility], [place], [address], 10/16/2024 13:07:45 10/15/19 25 10/16/2024 COMP. METAB OLIC PANEL (14) chloride 102 mmol/ L 96-106 Not Available [facility] ([facility]) [address] [facility] [place], [address], 10/16/2024 13:07:45 10/15/19 25 10/16/2024 COMP. METAB OLIC PANEL (14) carbon dioxide, total 22 mmol/ L 20-29 Not Available [facility] ([facility]) [address] [facility] [place], [address], 10/16/2024 13:07:45 10/15/19 25 10/16/2024 COMP. METAB OLIC PANEL (14) calcium 8.9 mg/dL 8.7-10 .2 Not Available [facility] ([facility]) [address] [facility] [place], [address], 10/16/2024 13:07:45 10/15/19 25 10/16/2024 COMP. METAB OLIC PANEL (14) protein, total 6.6 g/dL 6.0-8. 5 Not Available [facility] ([facility]) [address] [place], [address], 10/16/2024 13:07:45 10/15/19 25 10/16/2024 COMP. METAB OLIC PANEL (14) albumin 4.3 g/dL 3.9-4. 9 Not Available [facility] ([facility]) [address] [place], [address], 10/16/2024 13:07:45 10/15/19 25 10/16/2024 COMP. METAB OLIC PANEL (14) globulin, total 2.3 g/dL 1.5-4. 5 Not Available [facility] ([facility]) [address] [place], [address], 10/16/2024 13:07:45 10/15/19 25 10/16/2024 COMP. METAB OLIC PANEL (14) bilirubin, total 0.2 mg/dL 0.0-1. 2 Not Available [facility] ([facility]) [address] [place], [address], 10/16/2024 13:07:45 10/15/19 25 10/16/2024 COMP. METAB OLIC PANEL (14) alkaline phosphatase 72 IU/L 44-121 Not Available [facility] [address] [facility] [place], [address], 10/16/2024 13:07:45 10/15/19 25 10/16/2024 COMP. METAB OLIC PANEL (14) AST (SGOT) 19 IU/L 0-40 Not Available [facility] [address] [facility] [place], [address], 10/16/2024 13:07:45 10/15/19 25 10/16/2024 COMP. METAB OLIC PANEL (14) ALT (SGPT) 13 IU/L 0-32 Not Available [facility] ([facility]) [address] [facility], [place], [address], 10/16/2024 13:07:45 10/15/19 25 10/16/2024 VITAM IN B12 AND FOLAT E vitamin B12 733 pg/mL 232-12 45 Not Available [facility] ([facility]) [address] [facility], [place], [address], 10/16/2024 13:07:47 10/15/19 25 10/16/2024 VITAM IN B12 AND FOLAT E folate (folic acid), serum 12.4 NG/mL >3.0 A serum folat e fabiola ntrat ion of less than 3.1 ng/mL is consi dered to repre sent clini robin defic iency . Not Available [facility] ([facility]) [address] [facility], [place], [address], 10/16/2024 13:07:47 10/15/19 25 10/16/2024 IRON AND TIBC iron bind.cap.(TI BC) 431 ug/dL 250-45 0 Not Available [facility] ([facility]) [address] [facility], [place], [address], 10/16/2024 13:07:48 10/15/19 25 10/16/2024 IRON AND TIBC UIBC 404 ug/dL 131-42 5 Not Available [facility] ([facility]) [address] [place], [address], 10/16/2024 13:07:48 10/15/19 25 10/16/2024 IRON AND TIBC iron 27 ug/dL 27-159 Not Available [facility] ([facility]) [address] [facility], [place], [address], 10/16/2024 13:07:48 10/15/19 25 10/16/2024 IRON AND TIBC iron saturation 6 % 15-55 alert low Not Available [facility]) [address] [place], [address], 10/16/2024 13:07:48 10/15/19 25 10/16/2024 HEMOG LOBIN A1C hemoglobin A1C 5.5 % 4.8-5. 6 Predi abete s: 5.7 - 6.4 Diabe israel: >6.4 Glyce anita contr ol for adult s with diabe israel: <7.0 Not Available [facility] ([facility]) [address] [place], [address], 10/16/2024 13:07:49 10/15/19 25 10/16/2024 MAGNE SIUM magnesium 2.1 mg/dL 1.6-2. 3 Not Available [facility] ([facility]) [address] [place], [address], 10/16/2024 13:07:50 10/15/19 25 10/16/2024 SWATHI TIN ferritin 11 NG/mL 15-150 below low normal Not Available [facility] ([facility]) [address] [place], [address], 10/16/2024 13:07:51 10/15/19 25 10/16/2024 CBC WITH DIFFE RENTI AL/PL ATELE T WBC 5.3 x10e3 /uL 3.4-10 .8 Not Available [facility] ([facility]) [address] [place], [address], 10/16/2024 13:07:52 10/15/19 25 10/16/2024 CBC WITH DIFFE RENTI AL/PL ATELE T RBC 4.75 x10e6 /uL 3.77-5 .28 Not Available [facility] ([facility]) [address] [place], [address], 10/16/2024 13:07:52 10/15/19 25 10/16/2024 CBC WITH DIFFE RENTI AL/PL ATELE T hemoglobin 12.3 g/dL 11.1-1 5.9 Not Available [facility] ([facility]) [address] [place], [address], 10/16/2024 13:07:52 10/15/19 25 10/16/2024 CBC WITH DIFFE RENTI AL/PL ATELE T hematocrit 39.6 % 34.0-4 6.6 Not Available [facility] ([facility]) [address] [place], [address], 10/16/2024 13:07:52 10/15/19 25 10/16/2024 CBC WITH DIFFE RENTI AL/PL ATELE T MCV 83 fL 79-97 Not Available [facility] ([facility]) [address] [place], [address], 10/16/2024 13:07:52 10/15/19 25 10/16/2024 CBC WITH DIFFE RENTI AL/PL ATELE T MCH 25.9 pg 26.6-3 3.0 below low normal Not Available [facility] ([facility]) [address] [place], [address], 10/16/2024 13:07:52 10/15/19 25 10/16/2024 CBC WITH DIFFE RENTI AL/PL ATELE T MCHC 31.1 g/dL 31.5-3 5.7 below low normal Not Available [facility] ([facility]) [address] [place], [address], 10/16/2024 13:07:52 10/15/19 25 10/16/2024 CBC WITH DIFFE RENTI AL/PL ATELE T RDW 14.3 % 11.7-1 5.4 Not Available [facility] ([facility]) [address] [place], [address], 10/16/2024 13:07:52 10/15/19 25 10/16/2024 CBC WITH DIFFE RENTI AL/PL ATELE T platelets 188 x10e3 /uL 150-45 0 Not Available [facility]) [address] [facility] [place], [address], 10/16/2024 13:07:52 10/15/19 25 10/16/2024 CBC WITH DIFFE RENTI AL/PL ATELE T neutrophils 61 % notest ab. Not Available [facility] ([facility]) [address] [facility], [place], [address], 10/16/2024 13:07:52 10/15/19 25 10/16/2024 CBC WITH DIFFE RENTI AL/PL ATELE T lymphs 27 % notest ab. Not Available [facility] ([facility]) [address] [facility], [place], [address], 10/16/2024 13:07:52 10/15/19 25 10/16/2024 CBC WITH DIFFE RENTI AL/PL ATELE T monocytes 10 % notest ab. Not Available [facility] ([facility]) [address] [facility], [place], [address], 10/16/2024 13:07:52 10/15/19 25 10/16/2024 CBC WITH DIFFE RENTI AL/PL ATELE T eos 2 % notest ab. Not Available [facility] ([facility]) [address] [facility], [place], [address], 10/16/2024 13:07:52 10/15/19 25 10/16/2024 CBC WITH DIFFE RENTI AL/PL ATELE T basos 0 % notest ab. Not Available [facility] ([facility]) [address] [facility], [place], [address], 10/16/2024 13:07:52 10/15/19 25 10/16/2024 CBC WITH DIFFE RENTI AL/PL ATELE T neutrophils (absolute) 3.2 x10e3 /uL 1.4-7. 0 Not Available [facility] ([facility]) [address] [facility], [place], [address], 10/16/2024 13:07:52 10/15/19 25 10/16/2024 CBC WITH DIFFE RENTI AL/PL ATELE T lymphs (absolute) 1.4 x10e3 /uL 0.7-3. 1 Not Available [facility] ([facility]) [address] [facility], [place], [address], 10/16/2024 13:07:52 10/15/19 25 10/16/2024 CBC WITH DIFFE RENTI AL/PL ATELE T monocytes(ab solute) 0.6 x10e3 /uL 0.1-0. 9 Not Available [facility] ([facility]) [address] [facility], [place], [address], 10/16/2024 13:07:52 10/15/19 25 10/16/2024 CBC WITH DIFFE RENTI AL/PL ATELE T eos (absolute) 0.1 x10e3 /uL 0.0-0. 4 Not Available [facility] ([facility]) [address] [facility], [place], [address], 10/16/2024 13:07:52 10/15/19 25 10/16/2024 CBC WITH DIFFE RENTI AL/PL ATELE T baso (absolute) 0.0 x10e3 /uL 0.0-0. 2 Not Available [facility] ([facility]) [address] [facility], [place], [address], 10/16/2024 13:07:52 10/15/19 25 10/16/2024 CBC WITH DIFFE RENTI AL/PL ATELE T immature granulocytes 0 % notest ab. Not Available [facility] ([facility]) [address] [facility], [place], [address], 10/16/2024 13:07:52 10/15/19 25 10/16/2024 CBC WITH DIFFE RENTI AL/PL ATELE T immature grans (abs) 0.0 x10e3 /uL 0.0-0. 1 Not Available [facility] ([facility]) [address], [place], [address], 10/16/2024 13:07:52 01/12/20 25 12/31/2024 temitope r monit or No observ ation record ed. [facility] (Pulmonary) [address], [place], [address], 02/01/2025 23:16:34 Result Notes None recorded. Problems Name Problem SNOMED Code Status Onset Date Resolution Date Notes Provider Name and Address Organization Details Recorded Time Body mass index 30+ - obesity 315379521 Active 2024 Coty Salcedo MA null, [facility] 5 10:37:44 Obesity 074799596 Active 2024 ZEUS Rivera Attn: Jarrod george,[address] [place], [address], [facility] [place] 5 10:54:46 Gastroesoph ageal reflux disease without esophagitis 284691634 Active 2024 ZEUS Rivera Attn: Accountin g,[address] [place], [address], [facility], [place] 5 09:24:42 Past history of gestational diabetes mellitus 847890789 Active 2024 ZEUS Rivera Attn: Accountin g,[address] [place], [address], [facility], [place] 5 09:25:38 Positive screening for depression on PHQ-9 (Patient Health Questionnai re 9) 9746673944481 00 Active 2024 ZEUS Rivera Attn: Accountalejandro g,[address] [place], [address], [facility], [place] 5 09:26:10 Problem Notes None recorded. Procedures Surgical History Date Name Laterality Status Provider Name and Address Organization Details Recorded Time section completed Coty Salcedo MA [facility] 10/15/2024 12:03:57 Imaging Results None recorded. Procedure [...] 1 CAPSULE BY MOUTH EVERY DAY NEEDED 2024 active Not Available Not Available Not Avai lable oxycodone-a cetaminophe n 5 mg-325 mg tablet [...] Not Available Not Available Vitals Date Recorded Heart rate Systolic And Diastolic Provider Name and Address Organization Details Last Updated DateTime 10/15/2024 83 /min 130/80 mm[Hg] ZEUS Rivera Attn: [address] [place], [address], [place] [facility] 10/15/2024 11:09:06 Date Recorded Body weight Body mass index (BMI) Body height Respiratory rate Oxygen saturation Heart rate Systolic And Diastolic Provider Name and Address Organization Details Last Updated DateTime 82462.8 1 g 34.4 kg/m2 154.94 cm 18 /min 99 % 100 /min 126/82 mm[Hg] Coty Salcedo MA [place] [facility] 10:42:28 Social History Question Answer Notes LastModified by [...] No Information not available 10/15/2024 Are You Deaf Or Do You Have Serious Difficulty Hearing? No Information not available 10/15/2024 What Type Of Diet Are You Following? REGULAR Information n ot available 10/15/2024 What Is The Highest Grade Or Level Of School You Have Completed Or The Highest Degree You Have Received? [id number] Information not available 10/15/2024 Are There Any [...] Yes Information not available 10/15/2024 Do You Use Sunscreen Routinely? Yes Information not available 10/15/2024 Sex: Female Functional Status Question Answer Note LastModified by Organizat ion Details LastModified Time Do you use any illicit or recreational drugs? No Information not available 10/15/2024 Are you currently employed? Yes Information not available 10/15/2024 Are you able to care for yourself independently? Yes Information not available 10/15/2024 What is your occupation? Teacher Information not available 10/15/2024 What is your exercise level? Occasional rare Information not available 10/15/2024 Mental Status Question Answer Note LastModified by Organization D etails LastModified Time Do you feel stressed (tense, restless, nervous, or anxious, or unable to sleep at night)? [id number] Information not available 10/15/2024 Family History Nothing Reported. Medical History Condition Response Coronary Artery Disease N Other N High Blood Pressure N Atrial Fibrillation N Kidney or Bladder Problems N Thyroid Problems N GI Problems N Depression N COPD N Blood Clots N Have you had a mammogram in the last yea r? N Skin Problems N Anemia N Heart Attack ([place]) N Anxiety Disorder N Diabetes N Muscle, Joint, or Bone Problems N Seizures/Epilepsy N Have you had a colonoscopy in the last 1 0 years? N Acid Reflux (GERD) N Cancer N Stroke N Asthma N Allergies N Have you had a PSA blood test in the las t year? N High Cholesterol N Hepatitis N Liver Disease N Headaches N Heart Failure N Osteoporosis N Gynecological History Statement/Question Response Flow Moderate Date of LMP 09/16/2024 Menses Monthly Y Duration of Flow (days) 7 Current Control Method None LMP Approximate Obstetrics History GPAL:G 2 P 2 0 0 2 Type Value Full Term 2 Induced 0 Spontaneous 0 Premature 0 Living 2 Total 2 Immunizations Vaccine Type Date Status Note Provider Nam karoline and Address Organization Details Recorded Time COVID-19, mRNA, LNP-S, PF, 30 mcg/0.3 mL dose 11/05/2020 completed Coty Salcedo MA null, [place] - [facility] 10/15/2024 10:37:37 COVID-19, mRNA, LNP-S, PF, 30 mcg/0.3 mL dose 11/26/2020 completed Williamguido Salcedo MA roberto, [place] - [facility] 10/15/2024 10:37:37 COVID-19, mRNA, LNP-S, PF, 30 mcg/0.3 mL dose 08/27/2021 completed Coty Salcedo MA [place], [place] - [facility] 10/15/2024 10:37:37 Tdap 04/06/2024 completed Coty Salcedo [place], [place] [facility] 10/15/2024 10:37:37 Tdap 07/30/2018 completed Coty Salcedo MA [place], [place] - [facility] 10/15/2024 10:37:37 Past Encounters Encounter ID Performer Location Encounter Start Date Encounter Closed Date Diagnosis/Indication Diagnosis SNOMED-CT Code Diagnosis ICD10 Code Diagnosis IMO Codes Diagnosis Note [id number] Anthony You MD [facility] [place] [address] [place] [address] 10/15/2024 10:20:32 10/15/2024 11:48:15 Body mass index 30+ - obesity 325517875 Z68.34 bmi 34.4 Obesity 710894036 E66.9 discussed healthy diet, exercise, controllin g carbohydra israel and added sugars in the diet Gastroesop hageal reflux disease without esophagitis 775028604 K21.9 Increased 2 omeprazole 40 mg daily for better management of acid reflux Adult heal th examination 644074273 Z00.01 New patient exam completed state 5486557 1 Z39.2 6 months post . . Alteration in heart rate 876043524 R00.9 Check screening magnesium level and send for a 48 hour Holter monitor for baseline evaluation on heart rate that patient reports is variable at times Dizziness 005503933 R42 For underlying dizziness we will screen CBC, CMP and vitamin B12 and folate Past pregn funmilayo history of gestational diabetes mellitus 702364580 Z86.32 History of gestationa l diabetes. We will order an updated A1c Thyroid di sorder screening 739010249 Z13.29 Routine thyroid function testing ordered Cholesterol screening 27 6161369 Z13.220 Fasting lipid panel ordered Iron deficiency 48419677 E61.1 Underlying iron deficiency reported we will check an updated iron studies panel Positive s creening for depression on PHQ-9 (Patient Health Questionnaire 9) 5124765963 92526 Z13.31 Patient scored a 9 on screening today. She has no complaints or concerns about her mental health Health Concerns Section Related Observation LastModified by Organization Detai ls LastModified Time None Recorded Concern Status LastModified by Organization Details LastModified Time None Recorded Advance Directives Directive N: Payers Insurance Date Sequence Insurance Name Policy Number Policy Peeryra Covered Member ID Pereyra Member ID Guarantor Name 11/09/[address] [facility] [id number] Nilam Dang [id number] Nilam Dang Notes Date Note Type Note Provider Name and Address Organization Details Recorded Time 10/15/2024 text/html Reflux/GERDRepor kevin by PatientPatient has underlying acid reflux and has been [...] she has a history of gestational diabetes. ZEUS Rivera Attn: Accounting[address] [place], [address], [facility] 11/07/2024 09:26:37 OBGyn Episode No OBEpisode recorded.
--- OUTSIDE RECORDS SUMMARY | 2025-09-03 05:41 | XMS_ITS | Clinical Summary ---
Author Organization Cirilo Vilchis [facility] Address [address] [place] [address] Care Team Providers Care Student Financial Aid Manager Name Role Phone Unavailable Primary Care Provider [...] (1 of 3 - 19+ 3-dose series) 10/10 HPV/Cotest (21-29) 2009 CERVICAL CANCER SCREENING 2018 HPV/Cotest (30-65) 2018 PAP SMEAR 2018 INFLUENZA VACCINE (#1) 2025 DTAP/TDAP/TD VACCINES (2 - Td or Tdap) 07/30/2028 HPV VACCINES (No Doses Required) Completed
--- NOTE | 2025-09-03 05:50 | LDADM ---
This patient, Nilam Dang, was admitted to Labor/Delivery/Recovery 120 on 09/03/25 at 05:35. Plans for labor, pain management and were discussed with patient. Patient/family oriented to hospital policies and general routines including ID bracelet, bed and alarms, visiting hours, pain management, procedures, bathroom and other care routines, personal items, smoking policy, room service/diet and guest tray routines, security routines, and visiting hours. Patient/Family are encouraged to report perceived risks to care and to ask questions if they do not understand what they are told or what they should do. See OBIX for further documentation.
[2025-09-03] MEDS: ACETAMINOPHEN 500 MG TABLET 1000 MG PO ×3 (06:17→20:34)
[2025-09-03] MEDS: LACTATED RINGERS 1,000 ML 125 ML IV CONT ×2 (06:17→07:21)
[2025-09-03 06:18] LABS: Hematocrit 31.8 % (37.0-47.0); Hemoglobin 10.0 g/dL (12.0-15.0); Immature Granulocyte Percent A 0.3 % (0-0.5); Lymphocytes Absolute Auto 3.10 K/mm3 (0.9-3.2); Mean Corpuscular HGB Conc 31.4 g/dl (32-36); Mean Corpuscular Hemoglobin 22.9 pg (26-34); Mean Corpuscular Volume 72.9 fl (80-100); Nucleated Red Blood Cells Absolute Auto 0.000 K/mm3 (0.0-0.012); Nucleated Red Blood Cells Perc 0.0 % (0.0-0.2); Platelet Count Result 160 k/mm3 (150-375); Red Blood Count 4.36 M/mm3 (4.2-5.4); White Blood Count 11.6 K/mm3 (4.5-10.0)
[2025-09-03 06:39] LABS: Microcytosis 1+ (NORMAL); Polychromasia 1+
[2025-09-03 06:40] LABS: Schistocytes None Seen
--- NOTE | 2025-09-03 06:57 | WPDHPUPDATE1 ---
History and Physical Update Update Date/Time: 09/03/25 06:57 History and Physical has been reviewed, including an updated exam of the patient. There are NO changes in the patient's condition. Risks, benefits, and alternatives have been discussed and questions answered. Patient agrees to proceed with procedure.
[2025-09-03 06:59] LABS: Syphilis IgG/IgM Antibody Non-Reactive (Nonreactive)
--- NOTE | 2025-09-03 07:04 | WPDANESEPPF ---
Anes - Initial Pre Proc Eval Procedure: Operation Date: 09/03/25 07:30 Proposed Procedures p Repeat Section - John Franklin MD Date/Time: 09/03/25 07:04 Surgeon: John Franklin MD Pre Op Diagnosis: Repeat C/S Patient Data Age: 34 Gender: F Height: 1.52 m Weight: 91.4 kg Last Vital Signs Pulse 79 09/03/25 06:45 BP 105/69 09/03/25 06:45 Pulse Ox 100 09/03/25 07:04 O2 Del Method Room Air 09/03/25 06:28 Allergies Allergy/AdvReac Type Severity Reaction Status Date / Time No Known Allergies Allergy Verified 09/03/25 05:50 Home Medications ?Medication ?Instructions ?Recorded ?Confirmed ?Type omeprazole 20 mg capsule,delayed 20 mg PO DAILY #90 caps 10/06/24 09/03/25 Rx release ferrous gluconate 324 mg (38 mg 324 mg PO DAILY 02/23/25 09/03/25 History iron) tablet vits no.126-ferrous fum 1 tablet PO DAILY 02/23/25 09/03/25 History 28 mg iron-folic acid 800 mcg tablet (Classic ) Laboratory Tests 09/03/25 05:53 WBC 11.6 H K/mm3 (4.5-10.0) RBC 4.36 M/mm3 (4.2-5.4) Hgb 10.0 L g/dL (12.0-15.0) Hct 31.8 L % (37.0-47.0) MCV 72.9 L fl (80-100) MCH 22.9 L pg (26-34) MCHC 31.4 L g/dl (32-36) RDW 16.4 H % (11.5-14.5) Plt Count 160 k/mm3 (150-375) MPV 10.1 fl (7.4-10.4) Immature Gran % (Auto) 0.3 % (0-0.5) Neut % (Auto) 67.3 % (45.5-73.1) Lymph % (Auto) 26.6 % (18.3-44.2) [place] % (Auto) 4.5 % (2.6-8.5) Eos % (Auto) 0.9 % (0-4.4) Baso % (Auto) 0.4 % (0.2-1.2) Lymph # (Auto) 3.10 K/mm3 (0.9-3.2) [place] # (Auto) 0.5 K/mm3 (0.1-0.6) Eos # (Auto) 0.1 K/mm3 (0-0.3) Baso # (Auto) 0.1 K/mm3 (0.0-0.1) Abs Immat Gran (auto) 0.04 H K/mm3 (0.00-0.031) Absolute Neuts (auto) 7.8 H K/mm3 (1.3-6.7) Absolute Nucleated RBC 0.000 K/mm3 (0.0-0.012) Band Neutrophils % Not Reportable Nucleated RBC % 0.0 % (0.0-0.2) Platelet Estimate Adequate (Adequate) Polychromasia 1+ Microcytosis 1+ (NORMAL) Schistocytes None seen Syphilis IgG/IgM Ab Non-reactive (Nonreactive) Blood Type A Positive Antibody Screen Negative Patient hx anesthesia problems: none Family hx anesthesia problems: none Results Review: All pre-operative results and documents have been reviewed as part of the pre-operative evaluation. [facility] Past Medical History Medical History Suppression of menses Surgical History Surgical History History of delivery Family History Family History Grandparent Diabetes mellitus Hypertension Mother Breast cancer in situ Social History Social History Smoking status: Never smoker Second hand tobacco smoke exposure: No Alcohol intake: former Alcohol use details: occasional Substance use: never Lack of Transportation: No Lack of Food: Never True Current Housing: I Have Housing Concerned About Future Housing: No Difficulty Paying Gas/Electric Bills: No Difficulty Paying for Meds: No Currently Unemployed: No Education: Master's Degree or Higher Difficulty w/ Childcare or Family Care: No Living arrangements: with family Additional living arrangements comments: Occupation/Education: occupation Additional occupation/education comments: teacher Gender identity (if verbalized by the patient): Female Sexual Orientation (if Verbalized by the Patient): Straight or Heterosexual Spiritual care concerns: No Anes - Eval Final PreProcedure Day of Procedure 09/03/25 07:04 Patient weight: obese Heart: regular rate and rhythm Lungs: clear to auscultation Airway: Mallampati scale class II Neurological: alert and oriented Last oral intake: >/= 8 hours ASA classification: II Emergent: no Anesthetic plan: proceed Anesthesia type and monitoring: regional spinal and standard monitoring Results Review: All pre-operative results and documents have been reviewed as part of the pre-operative evaluation. Informed Consent: The patient's anesthetic plan and its attendant risks and benefits were discussed with the patient/family/POA. Questions were solicited and answers provided to the satisfaction of the patient/family/POA.
[2025-09-03] MEDS: FAMOTIDINE 20 MG/2 ML VIAL IV PUSH (07:21)
[2025-09-03] MEDS: ONDANSETRON INJ 4 MG/2 ML VIAL IV PUSH (07:22)
--- NOTE | 2025-09-03 08:23 | P.PCNOB_ITS ---
OB - Delivery Note Procedure Delivery date: 09/03/25 Pre-op diagnosis: Previous Delivery Post-op Diagnosis: Same Induction method: None Delivery monitor: External FHT Prior to decision for section, ACOG/SMFM labor guidelines were considered and discussed with the patient and staff. Decision made to proceed with the section.: Yes Procedure Performed: Repeat Secondary branch: low cervical, transverse Surgeon: John Franklin MD Anesthesia type: Spinal Description of Procedure/Findings: The patient was taken to the operating room. A combined spinal epidural anesthesic was administered and found to be adequate at a t-10 level. The patient was placed in a supine position with a slight left lateral tilt. A rosas catheter was placed with return of clear urine. A Bovie grounding pad was placed. Surgical prep was performed and surgical drapes were placed. A surgical time out was performed. A Pfannenstiel skin incision was then made with the scalpel and carried through to the underlying layer of fascia. The fascia was then incised in the midline and the incision was extended laterally with the Austin scissors. The superior aspect of the fascia was then grasped with the Sukumar clamps, elevated, and the und erlying rectus muscles dissected off bluntly and sharply. Attention was then turned to the inferior aspect of this incision which, in a similar fashion, was grasped, tented up with the Sukumar clamps, and the rectus muscles dissected off both bluntly and sharply. The rectus muscles were then in the midline. The peritoneum was identified and entered bluntly. The peritoneal incision was then extended superiorly and inferiorly with good visualization of the bladder. A ring retractor was placed for better visualization. The vesico-uterine serosa was identified and dissected to create a bladder flap. The uterus was inspected for rotation. A low-transverse uterine incision was made sharply with the scalpel and entry was made into the uterine cavity. An amniotomy was made and copious amounts of clear fluid were noted on return. The uterine incision was extended laterally bluntly. The bladder blade was removed and the fetus was delivered atraumatically. The nose and mouth were suctioned with a bulb syringe. The umbilical cord was clamped twice and cut. The infant was handed off to the waiting staff. At the time of the delivery, the had good color, tone and grimace. The in lane cried with minimal stimulation. A second segment of umbilical cord was clamped and cut for cord blood gasses. Cord blood was collected for determination of the blood type and for direct Akbar. The placenta was delivered spontaneously without difficulty. The placenta appeared grossly normal and complete. The uterus was exteriorized and cleared of all clots and debris. The uterine incision was repaired using 0-monocryl suture in a running fashion. A second layer of 0 Monocryl suture was used in an imbricating fashion to obtain excellent hemostasis and uterine strength. The uterine closure was inspected for hemostasis. The posterior aspect of the uterus and the broad ligaments were inspected and the posterior cul-de-sac cleared of fluid and blood clots. The uterine closure was again inspected and found to be hemostatic. The uterus was returned to the abdominal cavity. The pericolic gutters were inspected and were cleared of all blood clots and debris. The uterine closure was then re inspected to ensure hemostasis as were all subfascial tissues. The peritoneum was closed using 3-0 vicryl in a running fashion. The fascia was reapproximated with 0-vicryl in a running fashion. The subcutaneous tissue was irrigated and hemostasis achieved with electrocautery. It was reapproximated with 3-0 vicryl in a running fashion. The skin was closed with 4-0 vicryl in a subcuticular fashion. A sterile dressing was applied to the wound. The patient tolerated the procedure well. Sponge, lap and needle counts were correct times three. The patient was taken to recovery in stable condition and without anticipated complications. Estimated Blood Loss: 420 Drains: No Packing: No Pathology: None sent Complications: No immediate complications Condition: Stable Disposition: Floor Baby Date of : 09/03/25 Gestational Age by Date: 39 gender: Female presentation: vertex Placenta delivery description: Manual Removal Cord Vessel Description: 3 Vessels
[2025-09-03] MEDS: KETOROLAC 15 MG/ML VIAL (*BKC) IV PUSH ×3 (08:38→20:34)
[2025-09-03] MEDS: OXYTOCIN 30 UNITS/NS 500 ML 30 UNITS/500 ML BAG 125 UNITS IV CONT (08:40)
[2025-09-03] MEDS: SCOPOLAMINE 1 MG PATCH 1 PATCH TRANSDERM (09:58)
--- NOTE | 2025-09-03 11:19 | PC.NURSE ---
Patient transferred to post room #286 per stretcher from labor and delivery. Support person present. Oriented to unit, room, information board, rooming in, admission packet and security measures. Patient verbalizes understanding.
[2025-09-03] MEDS: SIMETHICONE 80 MG TAB.CHEW PO ×2 (13:50→20:34)
[2025-09-03] MEDS: DEXTROSE 5%/0.45% SOD CHL 1,000 ML 125 ML IV CONT (13:51)
--- NOTE | 2025-09-03 14:38 | PC.NURSE ---
Mother verbalizes she is able to independently latch with appropriate positioning and alignment. She denies any nipple discomfort and is responsively . Mother declines any additional assistance or education at this time. Mother is encouraged to call for assistance if her infant doesn?t latch, pain with latching, questions or concerns. Mother voiced understanding of information shared along with the mom/baby guide for an additional resource. Reported to the Primary RN.
--- NOTE | 2025-09-03 15:29 | PCCCNOTE ---
Met with pt. today. FOB Albert at bedside. This is their 3rd child. Pt. and Albert live at home together with their children. Deny any needs for resources. Deny any resources or need for WIC. Directed pt. to review post resource information if needed that is located in her folder. Pt. reports she plans to follow up with her established OB at discharge. Denies any other needs.
[2025-09-03] MEDS: DOCUSATE SODIUM 100 MG CAPSULE PO (20:34)
[2025-09-04] MEDS: KETOROLAC 15 MG/ML VIAL (*BKC) IV PUSH (04:34)
[2025-09-04] MEDS: ACETAMINOPHEN 500 MG TABLET 1000 MG PO ×4 (04:34→23:01)
[2025-09-04 04:57] LABS: Hematocrit 26.8 % (37.0-47.0); Hemoglobin 8.2 g/dL (12.0-15.0); Immature Granulocyte Percent A 0.3 % (0-0.5); Lymphocytes Absolute Auto 2.54 K/mm3 (0.9-3.2); Mean Corpuscular HGB Conc 30.6 g/dl (32-36); Mean Corpuscular Hemoglobin 23.0 pg (26-34); Mean Corpuscular Volume 75.3 fl (80-100); Nucleated Red Blood Cells Absolute Auto 0.000 K/mm3 (0.0-0.012); Nucleated Red Blood Cells Perc 0.0 % (0.0-0.2); Platelet Count Result 131 k/mm3 (150-375); Red Blood Count 3.56 M/mm3 (4.2-5.4); White Blood Count 9.3 K/mm3 (4.5-10.0)
--- NOTE | 2025-09-04 07:11 | P.PNOB_ITS ---
OB - PN: Subj Subjective Date/time seen: 09/04/25 07:11 Patient comments: no complaints, pain well controlled, tolerating diet and flatus present OB - PN: Obj Data Labs 09/04/25 04:34 Labs: Laboratory Results - last 24 hr 09/04/25 04:34 WBC 9.3 RBC 3.56 L Hgb 8.2 L Hct 26.8 L MCV 75.3 L MCH 23.0 L MCHC 30.6 L RDW 16.5 H Plt Count 131 L MPV 10.2 Immature Gran % (Auto) 0.3 Neut % (Auto) 63.9 Lymph % (Auto) 27.3 [place] % (Auto) 7.0 Eos % (Auto) 1.1 Baso % (Auto) 0.4 Lymph # (Auto) 2.54 [place] # (Auto) 0.7 H Eos # (Auto) 0.1 Baso # (Auto) 0.0 Abs Immat Gran (auto) 0.03 Absolute Neuts (auto) 5.9 Absolute Nucleated RBC 0.000 Nucleated RBC % 0.0 OB - PN A/P Plan day: 1 Plan: routine care Comments: patient doing well H/H 8.11/04, asymptomatic afebrile, VSS incision C/D/I rosas removed, voiding spontaneously continue routine post op care Time Spent With Patient Time: Total time spent is greater than 50% in coordination of care (as documented) at patient's floor/unit and/or counseling patient: Time with patient: less than 15 minutes Review of Systems 2 Constitutional: Constitutional: Reports no additional constitutional complaints Cardiovascular: Cardiovascular: Reports no additional cardiovascular complaints Respiratory: Respiratory: Reports no additional respiratory complaints Gastrointestinal: Gastrointestinal: Reports no additional gastrointestinal complaints Genitourinary: Genitourinary: Reports no additional female genitourinary complaints Exam 2 Const: General: comfortable and no acute distress Resp: Effort & Inspection: normal respiratory effort Auscultation: clear to auscultation bilaterally Cardio: Rate: regular rate GI: GI Palp: Yes Soft to palpation, Yes Tenderness to palpation present (GI) (around incision ) and No Guarding due to palpation present (GI) A uscultation: normal bowel sounds Other: incision C/D/I, covered with Dermabond Psych: Appearance: grossly normal Mental Status: mental status grossly normal Affect: normal affect
[2025-09-04 07:48] VITALS: BP 99/67; PULSE 67; RESP 18; TEMP 36.3; O2SAT 98
[2025-09-04] MEDS: MULTIVIT/MIN/PREN/FOL AC/IRON TABLET 1 TAB PO (08:59)
[2025-09-04] MEDS: DOCUSATE SODIUM 100 MG CAPSULE PO ×2 (08:59→20:23)
[2025-09-04] MEDS: SIMETHICONE 80 MG TAB.CHEW PO ×3 (08:59→17:01)
[2025-09-04] MEDS: IBUPROFEN 600 MG TABLET PO ×3 (11:02→23:01)
[2025-09-04] MEDS: LIDOCAINE 5% PATCH 1 PATCH TRANSDERM (12:32)
--- NOTE | 2025-09-04 17:04 | WPDANLDNPN2 ---
Anes-Prog Note L&D-Neuraxial Date/Time: 09/04/25 17:04 Neuraxial medications: intrathecal PF morphine Opiod-related complaints: none Patient feedback: Patient satisfied with post-operative pain management.
--- NOTE | 2025-09-04 17:04 | WPDANLDPN2 ---
Anes-Prog Note L&D Date/Time: 09/04/25 17:04 Comfortable throughout: section Neuraxial method: spinal Epidural/Spinal procedure site: clean & non-tender Neuro status: Neuro function grossly intact. Cardiovascular status: normal Respiratory status: normal Airway patency: baseline Mental status: baseline Post-Op hydration status: normal Vital Signs: Last Vital Signs Temp 97.4 F L 09/04/25 07:48 Pulse 67 09/04/25 07:48 Resp 18 09/04/25 07:48 BP 99/67 L 09/04/25 07:48 Pulse Ox 98 09/04/25 07:48 O2 Del Method Room Air 09/04/25 07:20 Pain score (VAS): 3 I/O: Intake & Output 09/04/25 09/04/25 09/04/25 07:59 15:59 23:59 Intake Total 0 Output Total 700 Balance -700 0 Post-procedural complaints: none Patient feedback: Patient satisfied with anesthetic care.
[2025-09-04] MEDS: oxyCODONE HCL (*CRX) 5 MG TAB IR PO ×2 (19:15→20:24)
[2025-09-04 20:15] VITALS: BP 108/69; PULSE 67; RESP 18; O2SAT 100
[2025-09-04 23:00] VITALS: TEMP 36.5
[2025-09-05 00:30] VITALS: BP 100/53; PULSE 67; RESP 16; TEMP 36.7; O2SAT 99
[2025-09-05] MEDS: ACETAMINOPHEN 500 MG TABLET 1000 MG PO ×4 (05:00→22:52)
[2025-09-05] MEDS: IBUPROFEN 600 MG TABLET PO ×4 (05:03→22:52)
--- NOTE | 2025-09-05 07:58 | P.PNOB_ITS ---
OB - PN: Subj Subjective Date/time seen: 09/05/25 07:58 Patient comments: no complaints, incisional pain, tolerating diet and flatus present OB - PN: Obj Data Labs 09/04/25 04:34 OB - PN A/P Plan day: 2 Plan: routine care Comments: patient doing well patient states she still has some incisional pain VSS patient would like to stay one more night plan for discharge tomorrow Time Spent With Patient Time: Total time spent is greater than 50% in coordination of care (as documented) at patient's floor/unit and/or counseling patient: Time with patient: less than 15 minutes Review of Systems 2 Constitutional: Constitutional: Reports no additional constitutional complaints Cardiovascular: Cardiovascular: Reports no additional cardiovascular complaints Respiratory: Respiratory: Reports no additional respiratory complaints Gastrointestinal: Gastrointestinal: Reports no additional gastrointestinal complaints Genitourinary: Genitourinary: Reports no additional female genitourinary complaints Exam 2 Const: General: comfortable and no acute distress Resp: Effort & Inspection: normal respiratory effort Auscultation: clear to auscultation bilaterally Cardio: Rate: regular rate GI: GI Palp: Yes Soft to palpation, Yes Tenderness to palpation present (GI) (around incision ) and No Guarding due to palpation present (GI) A uscultation: normal bowel sounds Other: incision C/D/I, covered with Dermabond Psych: Appearance: grossly normal Mental Status: mental status grossly normal Affect: normal affect
[2025-09-05 08:00] VITALS: BP 113/51; PULSE 67; RESP 16; TEMP 36.8; O2SAT 99
[2025-09-05] MEDS: MULTIVIT/MIN/PREN/FOL AC/IRON TABLET 1 TAB PO (08:42)
[2025-09-05] MEDS: DOCUSATE SODIUM 100 MG CAPSULE PO ×2 (08:42→18:36)
[2025-09-05] MEDS: SIMETHICONE 80 MG TAB.CHEW PO ×3 (08:42→16:59)
[2025-09-05] MEDS: LIDOCAINE 5% PATCH 1 PATCH TRANSDERM ×3 (17:00→23:26)
[2025-09-05 18:25] VITALS: BP 110/62; PULSE 72; RESP 16; TEMP 36.8; O2SAT 98
[2025-09-05] MEDS: oxyCODONE HCL (*CRX) 5 MG TAB IR PO (18:36)
[2025-09-05] MEDS: oxyCODONE HCL (*CRX) 5 MG TAB IR 10 MG PO (22:53)
[2025-09-06] MEDS: ACETAMINOPHEN 500 MG TABLET 1000 MG PO ×2 (05:05→11:03)
[2025-09-06] MEDS: IBUPROFEN 600 MG TABLET PO ×2 (05:05→11:03)
--- NOTE | 2025-09-06 07:16 | P.DS_ITS ---
DS: Admitting Diagnosis Discharge Date 09/06/25 Admitting Diagnosis intrauterine at term prior DS: Discharge Diagnosis Discharge Diagnosis (1) Delivery by section of full-term : Code(s): O82 - Encounter for delivery without indication Status: Acute OB - DS: Summary OB Procedures : None OB Procedures Intrapartum: OB Procedures: : None Peripartum Data Infant Delivery Method: Section Procedures: Procedures Operation Date: 09/03/25 07:30 Actual Procedure Side Surgeon p Section Not Applicable John Franklin MD complications: none Status at Discharge Functional status at discharge: independent ambulation Overall status at discharge: patient is progressing back to baseline Time Spent with Patient Time attestation: Total time spent providing and/or coordinating discharge services: Time spent: Less than 30 minutes Exam Const: General: comfortable and no acute distress Resp: Effort & Inspection: normal respiratory effort Auscultation: clear to auscultation bilaterally Cardio: Rate: regular rate GI: Inspection: non-distended GI Palp: Yes Soft to palpation, No Firmness to palpation present (GI), Yes Tenderness to palpation present (GI) (mild tenderness over incision ) and No Guarding due to palpation present (GI) Auscultation: normal bowel sounds Psych: Appearance: grossly normal Mental Status: mental status grossly normal Discharge Plan Discharge Discharging Clinician: John Franklin Patient Disposition: Home Activity: as tolerated and pelvic rest Diet: regular Patient Instructions: Antibiotic Form, (DC) Patient Language: Azeri Stand Alone Forms: General Discharge Information Follow-up/Referrals: John Franklin MD [Physician, DISSOLVER OPERATOR] Discharge Medications: New oxycodone-acetaminophen 5-325 mg tablet 1 tablet PO Q6H PRN (Reason: pain) Qty: 28 0RF ibuprofen 600 mg tablet 600 mg PO Q6H PRN (Reason: pain) Qty: 30 0RF Continued Classic 28 mg iron- 800 mcg tablet 1 tablet PO DAILY ferrous gluconate 324 mg (38 mg iron) tablet 324 mg PO DAILY omeprazole 20 mg capsule,delayed release(DR/EC) 20 mg PO DAILY Qty: 90 0RF Date of admission: 09/03/25 05:35 Primary Care Provider: TomaszDolores Admitting Provider: John Franklin Attending physician on admission: John Franklin Condition: Stable
[2025-09-06 07:45] VITALS: BP 103/79; PULSE 54; RESP 18; TEMP 36.3; O2SAT 100
--- NOTE | 2025-09-06 09:20 | PC.NURSE ---
Consulted with mother concerning needs and she shared her ability to independently latch infant optimally without pain. Per mother she had been also supplementing with formula due to infant weight loss but feels like her milk is coming in and baby is satisfied at the breast after a feeding. Mother is feeding appropriately for growth of infant and understands stimulating to eat if needed. Infant has had appropriate feedings in the last 24 hours meets the outcomes for weight, output, blood sugar and jaundice at this time. Reinforced understanding of milk production, transition of milk, signs of adequate intake, transition of stool, prevention/relief of engorgement, plugged ducts, mastitis, responsive watching for feeding cues, the different methods of stimulating to breastfeed 1-3 hours after the start of the last feeding, community resources, and when to call a provider using the resource of the feeding sheet along with the mom and baby guide. Mother voiced understanding of the information shared, is confident to continue effectively her infant at home, when to call for assistance, denies any additional assistance or education at this time. Reported to the Primary RN.
[2025-09-06] MEDS: DOCUSATE SODIUM 100 MG CAPSULE PO (09:32)
[2025-09-06] MEDS: SIMETHICONE 80 MG TAB.CHEW PO (09:32)
[2025-09-06] MEDS: MULTIVIT/MIN/PREN/FOL AC/IRON TABLET 1 TAB PO (09:32)
[2025-09-07 08:52] VITALS: BP 131/78; PULSE 43; RESP 18; TEMP 36.9; O2SAT 100
== END 2025-09-06 11:49 | disposition home or self-care (01) | DRG 788 ==
LOC: ANHLDR 05:40 → ANHOB2 11:21
PROVIDERS: Admitting Provider Student in an Organized Health Care Education/Training Program; PCP Physician Assistant; Visit Provider Student in an Organized Health Care Education/Training Program
PROC: 10D00Z1 Extraction of Products of Conception, Low, Open Approach (ICD-10-PCS; CPT 59514; principal; 2025-09-03 07:30)
DX: O34.211 Maternal care for low transverse scar from previous cesarean delivery (principal); Z37.0 Single live birth; Z3A.39 39 weeks gestation of pregnancy
CPT/HCPCS: 36415; 85025; 86593; 86850; 86900; 86901; A9270; J1885; J2274; J2405; J2590; J7120

== ENCOUNTER 2025-09-07 16:30 | Outpatient (CLI) | payer OTHER, SELFPAY ==
[2025-09-07] VITALS (13 sets, daily range): BP systolic 122–150; BP diastolic 66–73; PULSE 30–67; O2SAT 99–100
--- NOTE | ~2025-09-07 | XR_ITS ---
EXAMINATION: XR chest 1V portable DATE: 09/07/2025 17:30 INDICATION: Shortness of breath. hypertension. TECHNIQUE: frontal view of the chest was obtained. COMPARISON: Chest CT dated 04/10/2024 FINDINGS: The lungs are clear with no focal airspace opacities, pulmonary edema, pleural effusion or pneumothorax. The cardiomediastinal silhouette is normal. Visualized bones and soft tissues are unremarkable. IMPRESSION: 1. No acute cardiopulmonary disease. Reviewed, dictated and finalized at location A. ENTER ASSISTANT INSTALLER
--- NOTE | 2025-09-07 16:45 | PC.NURSE ---
Patient presents to labor and delivery a few days PP. Patient was discharged from the hospital this morning. Patient states that after she woke up from a nap that she started having chest pain in the center of her back and shortness of breath when she is standing. Patient also reports that she had elevated BP at home 160's/90's. Patient also reports a mild headache that she rates a 3-4 at this time.
[2025-09-07 17:11] LABS: Hematocrit 29.1 % (37.0-47.0); Hemoglobin 8.8 g/dL (12.0-15.0); Immature Granulocyte Percent A 0.5 % (0-0.5); Lymphocytes Absolute Auto 1.39 K/mm3 (0.9-3.2); Mean Corpuscular HGB Conc 30.2 g/dl (32-36); Mean Corpuscular Hemoglobin 22.9 pg (26-34); Mean Corpuscular Volume 75.6 fl (80-100); Nucleated Red Blood Cells Absolute Auto 0.000 K/mm3 (0.0-0.012); Nucleated Red Blood Cells Perc 0.0 % (0.0-0.2); Platelet Count Result 170 k/mm3 (150-375); Red Blood Count 3.85 M/mm3 (4.2-5.4); White Blood Count 5.9 K/mm3 (4.5-10.0)
--- NOTE | 2025-09-07 17:13 | PC.NURSE ---
Dr. Franklin informed of pt's BP's and pulse since arrival with c/o shortness of breath and chest discomfort. Suspected bigeminy. Order received for EKG and CXR.
--- NOTE | 2025-09-07 17:14 | ECG_ITS ---
Test Date: 2025-09-07 17:35:15 Measurements Intervals [place] Rate: 66 P: 22 LA: 169 QRS: 12 QRSD: 87 T: 27 QT: 378 QTc: 396 Interpretive Statements SINUS RHYTHM WITH FREQUENT VENTRICULAR PREMATURE COMPLEXES IN A BIGEMINAL PATTERN POSSIBLE LEFT ATRIAL ENLARGEMENT BASELINE ARTIFACT- I, II, III, AVR, AVL, AVF, V1-V3 ABNORMAL ECG Compared to ECG 04/10/2024 13:09:56 VENTRICULAR BIGEMINY NOW PRESENT Electronically Signed On 09-07-2025 19:03:02 CHOIR TEACHER by Ga Garcia D.O.
--- NOTE | 2025-09-07 17:18 | OBADM ---
This patient, Nilam Dang, admitted to the OB room OB Post 116 for observation. Patient/family oriented to hospital policies and general routines including ID bracelet, bed and alarms, visiting hours, pain management, procedures, bathroom and other care routines, personal items, smoking policy, room service/diet, and visiting hours. Patient/Family are encouraged to report perceived risks to care and to ask questions if they do not understand what they are told or what they should do.
[2025-09-07 17:23] LABS: Alanine Aminotransferase 14 U/L (6-35); Albumin Level 3.2 g/dL (3.5-5.1); Alkaline Phosphatase 106 U/L (38-126); Anion Gap 5 mmol/L (4-12); Aspartate Amino Transferase 24 U/L (14-36); Bilirubin,Total 0.3 mg/dL (0.2-1.3); Blood Urea Nitrogen 11 mg/dL (7-17); Calcium 8.5 mg/dL (8.4-10.2); Carbon Dioxide 25 mmol/L (22-30); Chloride 109 mmol/L (98-107); Estimated Glomerular Filt Rate > 60; Glucose 85 mg/dL (65-110); Potassium 3.4 mmol/L (3.4-5.0); Sodium 139 mmol/L (137-145); Total Protein 6.2 g/dL (6.3-8.2); Uric Acid 5.2 mg/dL (2.5-7.5)
--- NOTE | 2025-09-07 17:30 | PC.NURSE ---
x ray here to take chest film.
--- NOTE | 2025-09-07 17:35 | PC.NURSE ---
Resp tech here for EKG.
--- NOTE | 2025-09-07 17:40 | PC.NURSE ---
Patient up to the bathroom. Patient did report some dizziness after she came out of the bathroom. Patient assisted to bed.
--- NOTE | 2025-09-07 17:41 | PC.NURSE ---
Dr. Franklin informed of EKG's with preliminary report of Bigeminy and one with sinus bradycardia. Portable CXR was done but no report yet. Given CBC results. Updated on BP's and P's. Order received to transfer pt to ED for cardiac workup.
--- NOTE | 2025-09-07 17:44 | PC.NURSE ---
Spoke to ED charge nurse- Cecily- and informed of this pt who delivered on 09/03/25 who arrived with c/o elevated BP and shortness of breath. States her BP was 160/90 at home. Informed of BP's since being here and pulse mainly in the 30's. EKG confirms bigeminy. Pt has a saline lock, had CBC, CMP, uric acid, and portable chest x-ray done. Dr. Franklin would like pt evaluated in the ED for cardiac work-up. Pt assisgned room 7 in ED.
--- NOTE | 2025-09-07 17:50 | PC.NURSE ---
Patient taken to ER per wheelchair for further evaluation.
--- NOTE | 2025-09-07 18:27 | PC.NURSE ---
Report called to Joseph MARTELL
== END 2025-09-07 17:50 | disposition other institution (70) ==
LOC: ANHOBOP 16:38 → ANHOBPP 16:40
PROVIDERS: PCP Physician Assistant; Visit Provider Student in an Organized Health Care Education/Training Program
DX: O13.9 Gestational [pregnancy-induced] hypertension without significant proteinuria, unspecified trimester (principal); O26.899 Other specified pregnancy related conditions, unspecified trimester; R07.9 Chest pain, unspecified; Z3A.00 Weeks of gestation of pregnancy not specified
CPT/HCPCS: 36415; 71045; 80053; 84550; 85025; 93005; 99199